=== PATIENT | female | born 1970 | race Caucasian/White ===

== ENCOUNTER 2016-12-01 10:29 | Emergency (ER) | payer MEDICARE ==
[2016-12-01] MEDS ORDERED: BACIGUENT PACKET TP ONE (10:59)
[2016-12-01] MEDS ORDERED: BACIGUENT PACKET ONE (11:01)
--- NOTE | 2016-12-01 11:07 | ERPHSYRPT ---
- History of Present Illness Time Seen by Provider: 12/01/16 11:01 Source: patient Exam Limitations: no limitations Patient Subjective Stated Complaint: pt stub right foot on hosptial bed at home last night, pt has laceration to bottom of 5th toe. no bleeding at present time Triage Nursing Assessment: pt alert and in no distress, pt laceration 1/2 cm in length with no bleeding and no other injury Physician History: This is a 46-year-old white female she arrives with complaint of pain in her right fifth toe with a laceration on the plantar surface of the base of her right fifth toe symptoms since 1:00 last night. Patient states she stubbed her toe on a hospital bed. Patient states she has a laceration which is primarily concerned about she does have some pain in the right fifth toe but this is minimal. Past medical history includes hypercholesterolemia. Asthma, bronchitis, GERD, irritable bowel, depression, borderline personality disorder, manic depression. Past surgical history includes appendectomy, cholecystectomy, hysterectomy. Social history positive for tobacco use Method of Injury: other (stubbed her toe on a hospital bed) Occurred: other (last night at 1:00) Quality: constant Severity of Pain-Max: moderate Severity of Pain-Current: mild Lower Extremities Pain: 5th toe: right Modifying Factors: Improves With: nothing Associated Symptoms: No unable to bear weight, No dizzy, No fainted, No seizure , No snapping sensation, No popping sensation Allergies/Adverse Reactions: miconazole nitrate [From Monistat 3] Allergy (Verified 12/01/16 10:45) Home Medications: Furosemide 20 mg [Lasix 20 mg] 20 mg DAILY 04/29/12 [History] Montelukast Sodium [Singulair] 10 mg HS 04/29/12 [History] Omeprazole 20 mg BID 04/29/12 [History] Potassium Chloride 10 Meq Tab* [Klor Con 10 MEQ] 10 meq DAILY 04/29/12 [ History] Quetiapine Fumarate 100 mg [Seroquel 100 MG] 300 mg HS 04/29/12 [History] Quetiapine Fumarate [Seroquel Xr] 400 mg HS 04/29/12 [History] Simvastatin [Zocor] 20 mg DAILY 04/29/12 [History] Fluoxetine HCl [Prozac] 60 mg DAILY 08/21/14 [History] Methocarbamol [Robaxin-750] 750 mg Q4HPRN PRN 08/21/14 [History] Solifenacin Succinate [Vesicare] 5 mg DAILY 08/21/14 [History] Armodafinil [Nuvigil] 50 mg DAILY 12/01/16 [History] Azithromycin [Zithromax Tri-Jac] 500 mg DAILY 12/01/16 [History] Esomeprazole Magnesium [Nexium] 20 mg DAILY 12/01/16 [History] Hx Tetanus, Diphtheria Vaccination/Date Given: Yes (2013) Hx Influenza Vaccination/Date Given: No Hx Pneumococcal Vaccination/Date Given: No Immunizations Up to Date: Yes - Review of Systems Constitutional: No Fever, No Chills Eyes: No Symptoms Ears, Nose, & Throat: No Symptoms Respiratory: No Cough, No Dyspnea Cardiac: No Chest Pain, No Edema, No Syncope Abdominal/Gastrointestinal: No Abdominal Pain, No Nausea, No Vomiting, No Diarrhea Genitourinary Symptoms: No Dysuria Musculoskeletal: Other (pain right fifth toe) Skin: Other (1.5 cm laceration base of right fifth toe plantar surface) Neurological: No Dizziness, No Focal Weakness, No Sensory Changes Psychological: No Symptoms Endocrine: No Symptoms All Other Systems: Reviewed and Negative - Past Medical History Pertinent Past Medical History: Yes Neurological History: No Pertinent History Cardiac History: Coronary Artery Disease, Other Respiratory History: Bronchitis, Emphysema Endocrine Medical History: No Pertinent History Musculoskeletal History: Osteoarthritis GI Medical History: GERD, Irritable Bowel Psycho-Social History: Depression, Other Female Reproductive Disorders: No Pertinent History Other Medical History: narcolpsy - Past Surgical History Past Surgical History: Yes Neuro Surgical History: No Pertinent History Cardiac: No Pertinent History Respiratory: No Pertinent History Gastrointestinal: Appendectomy, Cholecystectomy Musculoskeletal: No Pertinent History Female Surgical History: Hysterectomy - Social History Smoking Status: Current some day smoker How long have you smoked: 37 Exposure to second hand smoke: Yes Drug Use: none Patient Lives Alone: Yes Significant Family History: no pertinent family hx - Female History Hx Last Menstrual Period: hyster Hx Now: No - Nursing Vital Signs Nursing Vital Signs: Initial Vital Signs Temperature 98.2 F Temperature Source Oral Pulse Rate 70 Respiratory Rate 16 Blood Pressure 117/70 Pain Intensity 0 - Physical Exam General Appearance: mild distress Eyes, Ears, Nose, Throat Exam: moist mucous membranes Neck Exam: non-tender, supple Cardiovascular/Respiratory Exam: chest non-tender, normal breath sounds, regular rate/rhythm, no respiratory distress Gastrointestinal/Abdominal Exam: non-tender, guarding Back Exam: normal inspection, No vertebral tenderness Hips Exam: bilateral: non-tender, normal inspection, normal range of motion, no evidence of injury Legs Exam: bilateral leg: non-tender, normal inspection, normal range of motion , no evidence of injury Knees Exam: bilateral knee: non-tender, normal inspection, normal range of motion, no evidence of injury Ankle Exam: bilateral ankle: non-tender, normal inspection, normal range of motion, no evidence of injury Foot Exam: right foot: other (right fifth toe with mild tenderness full range of motion all toes, 1.5 cm laceration plantar surface base of fifth toe no bleeding), left foot: non-tender, normal inspection, normal range of motion DTR - Lower Extremities Exam: ankle (R): 2+, ankle (L): 2+ Neuro/Tendon Exam: normal sensation, normal motor functions Mental Status Exam: alert, oriented x 3, cooperative Skin Exam: normal color, warm, dry SpO2 Interpretation: normal (96%) SpO2: 96 Oxygen Delivery: Room Air - Course Nursing assessment & vital signs reviewed: Yes Ordered Tests: Active Orders 24 hr Category Date Time Status Splint STAT Care 12/01/16 10:59 Active Wound Care STAT Care 12/01/16 10:59 Active Medication Summary Discontinued Medications Generic Name Dose Route Start Last Admin Trade Name Freq PRN Reason Stop Dose Admin Bacitracin 0.9 gm 12/01/16 10:59 Baciguent Packet TP 12/01/16 11:00 STAT ONE Bacitracin Confirm 12/01/16 11:01 Baciguent Packet Administered 12/01/16 11:02 Dose 1 gm .ROUTE .STK-MED ONE - Progress Progress: improved Progress Note: 12/01/16 11:05 This is a 46-year-old white female she arrives with complaint of stubbing her right great toe on the hospital bed last night approximately 10 hours ago she has a laceration to the plantar surface of the base of the right fifth toe this is not bleeding and this is delayed presentation. Do not feel like sutures would be appropriate for this case. Will have the nurses clean the area will have them apply bacitracin and salina tape the right fifth toe to the fourth toe. Will give patient postop shoe. Patient really states that she is most concerned about a laceration on her toe she has mild pain Will write for some Pompey. Will discharge patient her tetanus is up to date. Patient is to clean area daily and apply bacitracin use salina tape use her postop shoe. Will write for Pompey one orally every 4-6 hours as needed for pain #12 - Departure Time of Disposition: 11:07 Departure Disposition: Home Clinical Impression: delayed presentation Laceration of fifth toe, right Qualifiers: Encounter type: initial encounter Qualified Code(s): S91.114A - Laceration without foreign body of right lesser toe(s) without damage to nail, initial encounter Contusion of fifth toe, right Qualifiers: Encounter type: initial encounter Qualified Code(s): S90.121A - Contusion of right lesser toe(s) without damage to nail, initial encounter Condition: Fair Critical Care Time: No Referrals: KIMBERLY DUKES [Primary Care Provider] - Additional Instructions: Return home. Clean right fifth toe and apply bacitracin daily. Salina tape right fifth toe to right fourth toe. Wear postop shoe for 5 days. Follow-up with your family doctor or return if problems. Return for acute distress or for severe symptoms. Pompey 5/325 #12 one orally every 4-6 hours as needed for pain Prescriptions: Hydrocodone Bit/Acetaminophen [Pompey 5/325Mg] 1 tab PO Q4-6HPRN PRN #12 tablet PRN Reason: Pain
[2016-12-01 11:19] VITALS: BP 115/74; PULSE 74; O2SAT 94
== END 2016-12-01 11:28 ==
LOC: ED 10:29
DX: S91.114A Laceration without foreign body of right lesser toe(s) without damage to nail, initial encounter (principal); S90.121A Contusion of right lesser toe(s) without damage to nail, initial encounter; W22.03XA Walked into furniture, initial encounter
CPT/HCPCS: 99283

== ENCOUNTER 2017-03-12 16:09 | Emergency (ER) | payer MEDICARE ==
[2017-03-12 16:34] VITALS: O2SAT 94
[2017-03-12 17:29] VITALS: BP 116/73; PULSE 60
--- NOTE | 2017-03-12 17:41 | ERPHSYRPT ---
- History of Present Illness Time Seen by Provider: 03/12/17 16:29 Source: patient Patient Subjective Stated Complaint: LT FOOT PAIN Triage Nursing Assessment: DORSAL LT FOOT PAIN FOR 4 DAYS. SLIGHT DORSAL REDNESS AND SLIGHT SWELLING TO DORSAL LT FOOT. DENIES INJURY. REDNESS NOTED TO BASE OF 3-5 TOES ON LT FOOT. Physician History: CC: left foot pain Hx: 46 y/o patient of Dr Zhang. She has pain in left foot for 4 days. Might have twisted on a hump on her floor. Mild redness. No fever or chills. No FB. Tetanus up to date. Pain moderate. She used aleve. Severity of Pain-Max: mild Severity of Pain-Current: mild Lower Extremities Pain: foot: left Allergies/Adverse Reactions: miconazole nitrate [From Monistat 3] Allergy (Verified 12/01/16 10:45) Home Medications: Furosemide 20 mg [Lasix 20 mg] 20 mg DAILY 04/29/12 [History] Montelukast Sodium [Singulair] 10 mg HS 04/29/12 [History] Omeprazole 20 mg BID 04/29/12 [History] Potassium Chloride 10 Meq Tab* [Klor Con 10 MEQ] 10 meq DAILY 04/29/12 [ History] Quetiapine Fumarate 100 mg [Seroquel 100 MG] 300 mg HS 04/29/12 [History] Quetiapine Fumarate [Seroquel Xr] 400 mg HS 04/29/12 [History] Simvastatin [Zocor] 20 mg DAILY 04/29/12 [History] Fluoxetine HCl [Prozac] 60 mg DAILY 08/21/14 [History] Methocarbamol [Robaxin-750] 750 mg Q4HPRN PRN 08/21/14 [History] Solifenacin Succinate [Vesicare] 5 mg DAILY 08/21/14 [History] Armodafinil [Nuvigil] 50 mg DAILY 12/01/16 [History] Azithromycin [Zithromax Tri-Jac] 500 mg DAILY 12/01/16 [History] Esomeprazole Magnesium [Nexium] 20 mg DAILY 12/01/16 [History] Hx Tetanus, Diphtheria Vaccination/Date Given: Yes Hx Influenza Vaccination/Date Given: No Hx Pneumococcal Vaccination/Date Given: No Immunizations Up to Date: Yes - Review of Systems Constitutional: No Fever, No Chills Abdominal/Gastrointestinal: No Nausea, No Vomiting Skin: No Rash - Past Medical History Pertinent Past Medical History: Yes Neurological History: No Pertinent History Cardiac History: Coronary Artery Disease, Other Respiratory History: Bronchitis, Emphysema Endocrine Medical History: No Pertinent History Musculoskeletal History: Osteoarthritis GI Medical History: GERD, Irritable Bowel Psycho-Social History: Depression, Other Female Reproductive Disorders: No Pertinent History Other Medical History: Narcolepsy - Past Surgical History Past Surgical History: Yes Neuro Surgical History: No Pertinent History Cardiac: No Pertinent History Respiratory: No Pertinent History Gastrointestinal: Appendectomy, Cholecystectomy Musculoskeletal: No Pertinent History Female Surgical History: Hysterectomy - Social History Smoking Status: Current every day smoker How long have you smoked: 37 Exposure to second hand smoke: No Drug Use: none Patient Lives Alone: Yes Significant Family History: no pertinent family hx - Female History Hx Now: No - Nursing Vital Signs Nursing Vital Signs: Initial Vital Signs Temperature 97.3 F Temperature Source Oral Pulse Rate 60 Respiratory Rate 18 Blood Pressure [Right Arm] 116/73 Pain Intensity 6 - Physical Exam General Appearance: alert Eyes, Ears, Nose, Throat Exam: moist mucous membranes Neck Exam: normal inspection, non-tender, supple Cardiovascular/Respiratory Exam: chest non-tender, normal breath sounds, regular rate/rhythm Gastrointestinal/Abdominal Exam: non-tender, soft Neuro/Tendon Exam: normal sensation, normal motor functions Mental Status Exam: alert, oriented x 3, cooperative Skin Exam: warm, dry SpO2 Interpretation: normal SpO2: 94 Oxygen Delivery: Room Air Comments: mild dorsal erythema, intact pulses, no sores, skin tenderness to foot. No ankle or leg tenderness. - Course Nursing assessment & vital signs reviewed: Yes - Radiology Exams left foot X-ray Interpretation: No Fracture Ordered Tests: Active Orders 24 hr Category Date Time Status Splint STAT Care 03/12/17 17:35 Active FOOT (MINIMUM 3 VIEWS) Stat Exams 03/12/17 16:34 Taken - Progress Progress Note: 03/12/17 17:39 Likely mild cellulitis. Can not rule out early charcot. Advised close follow up with Dr Zhang. Rx keflex and darco shoe. Counseled pt/family regarding: diagnosis, need for follow-up, rad results - Departure Time of Disposition: 17:39 Departure Disposition: Home Clinical Impression: Left foot pain, Cellulitis of left foot Condition: Stable Critical Care Time: No Referrals: ELISSA AGRAWAL [Primary Care Provider] - Instructions: Cellulitis -- Adult, Foot Pain Additional Instructions: Elevate foot. Darco shoe. Rx keflex. Aleve as already directed. Follow up with Dr Vicente raines. Prescriptions: Cephalexin Mh 500 mg [Keflex 500 mg] 1 cap PO QID #40 capsule
--- NOTE | 2017-03-13 08:51 | XRAY ---
Indication: Pain and redness for 4 days. No known injury. Comparison: July 03, 2016. 3 nonweightbearing views of the left foot again demonstrates talonavicular accessory ossicle. No new/acute bony, articular, or soft tissue abnormalities.
== END 2017-03-12 17:51 | disposition home or self-care (01) ==
LOC: ED 16:09
DX: M79.672 Pain in left foot (principal); L03.116 Cellulitis of left lower limb; J44.9 Chronic obstructive pulmonary disease, unspecified
CPT/HCPCS: 73630; 99283

== ENCOUNTER 2017-06-20 07:29 | Emergency (ER) | payer MEDICARE ==
[2017-06-20] MEDS ORDERED: MOTRIN 600 MG PO ONE (07:43)
[2017-06-20] MEDS ORDERED: MOTRIN 600 MG ONE (07:47)
--- NOTE | 2017-06-20 07:52 | ERPHSYRPT ---
- History of Present Illness Time Seen by Provider: 06/20/17 07:33 Source: patient Patient Subjective Stated Complaint: PT REPORTS TRIPPING ET FALLING LAST NIGHT- REPORTS PAIN TO RIGHT SHOULDER-STATES PAIN INCREASES WITH MOVEMENT-DENIES NUMBNESS OR TINLGING Triage Nursing Assessment: PT PINK WARM ET [id number] UNABLE TO MOVE EXTREMITY -GRIMACING ET MOANING-RADIAL PULSE REGULAR-CAP REFILL 3 SECONDS-PT REPORTS FULL SENSATION TO HAND Physician History: CC: right arm injury Hx: 46 y/o patient of JACY Fine. She fell around 11PM last night at her brother' s walking on a dark walk. She has injury to the right arm. Pain is moderately severe and worse with movement. No N/T/W. No head or neck injury. No other injury. She drove herself here and prefers no shots. Allergies/Adverse Reactions: miconazole nitrate [From Monistat 3] Allergy (Verified 06/20/17 07:42) Home Medications: Furosemide 20 mg [Lasix 20 mg] 20 mg DAILY 04/29/12 [History] Montelukast Sodium [Singulair] 10 mg HS 04/29/12 [History] Omeprazole 20 mg BID 04/29/12 [History] Potassium Chloride 10 Meq Tab* [Klor Con 10 MEQ] 10 meq DAILY 04/29/12 [ History] Quetiapine Fumarate [Seroquel Xr] 400 mg HS 04/29/12 [History] Simvastatin [Zocor] 20 mg DAILY 04/29/12 [History] Fluoxetine HCl [Prozac] 60 mg DAILY 08/21/14 [History] Methocarbamol [Robaxin-750] 750 mg Q4HPRN PRN 08/21/14 [History] Solifenacin Succinate [Vesicare] 5 mg DAILY 08/21/14 [History] Esomeprazole Magnesium [Nexium] 20 mg DAILY 12/01/16 [History] Hx Tetanus, Diphtheria Vaccination/Date Given: Yes Hx Influenza Vaccination/Date Given: No Hx Pneumococcal Vaccination/Date Given: No Immunizations Up to Date: Yes - Review of Systems Constitutional: No Symptoms Eyes: No Vision Changes, No Double Vision Respiratory: No Dyspnea Cardiac: No Chest Pain Abdominal/Gastrointestinal: No Abdominal Pain Musculoskeletal: Fall, Injury (right arm), No Back Pain, No Neck Pain Skin: No Rash Neurological: No Focal Weakness, No Headache, No Parasthesia All Other Systems: Reviewed and Negative - Past Medical History Pertinent Past Medical History: Yes Neurological History: No Pertinent History Cardiac History: Coronary Artery Disease, Other Respiratory History: Bronchitis, Emphysema Endocrine Medical History: No Pertinent History Musculoskeletal History: Fibromyalgia, Osteoarthritis GI Medical History: GERD, Irritable Bowel Psycho-Social History: Depression, Other Female Reproductive Disorders: No Pertinent History Other Medical History: Narcolepsy - Past Surgical History Past Surgical History: Yes Neuro Surgical History: No Pertinent History Cardiac: No Pertinent History Respiratory: No Pertinent History Gastrointestinal: Appendectomy, Cholecystectomy Musculoskeletal: No Pertinent History Female Surgical History: Hysterectomy - Social History Smoking Status: Current every day smoker How long have you smoked: YRS Exposure to second hand smoke: No Drug Use: none Patient Lives Alone: Yes Significant Family History: no pertinent family hx - Female History Hx Last Menstrual Period: HYSTERECTOMY Hx Now: No - Nursing Vital Signs Nursing Vital Signs: Initial Vital Signs Temperature 98.2 F 06/20/17 07:39 Pulse Rate 81 06/20/17 07:39 Respiratory Rate 20 06/20/17 07:39 Blood Pressure 130/80 06/20/17 07:39 O2 Sat by Pulse Oximetry 95 06/20/17 07:39 Pain Scale Pain Intensity 7 - Physical Exam General Appearance: alert Eyes, Ears, Nose, Throat Exam: moist mucous membranes Neck Exam: normal inspection, non-tender, supple Cardiovascular/Respiratory Exam: normal breath sounds, regular rate/rhythm Abdominal Exam: non-tender, soft Back Exam: normal inspection, No vertebral tenderness Shoulder Exam: normal inspection, bone tenderness, limited ROM Elbow/Forearm Exam: normal inspection, bone tenderness, limited ROM Wrist Exam: normal inspection, normal ROM, bone tenderness Hand Exam: normal inspection, non-tender, no evidence of injury Neuro/Tendon Exam: normal sensation, normal motor functions Mental Status Exam: alert, oriented x 3, cooperative Skin Exam: warm, dry SpO2 Interpretation: normal SpO2: 95 Oxygen Delivery: Room Air Comments: Diffuse tenderness in arm. No laceration. No bruising. Pulse intact. No swelling. - Course Nursing assessment & vital signs reviewed: Yes - Radiology Exams right wrist, elbow, shoulder X-ray Interpretation: Reviewed by me, No Fracture Ordered Tests: Active Orders 24 hr Category Date Time Status Cold Application STAT Care 06/20/17 07:43 Active NPO (ED) STAT Care 06/20/17 07:43 Active Sling Application STAT Care 06/20/17 07:43 Active ELBOW (MINIMUM 3 VIEWS) Stat Exams 06/20/17 07:44 Taken SHOULDER Stat Exams 06/20/17 07:43 Taken WRIST (MIN 3 VIEWS) Stat Exams 06/20/17 07:44 Taken Medication Summary Discontinued Medications Generic Name Dose Route Start Last Admin Trade Name Nelson PRN Reason Stop Dose Admin Ibuprofen 600 mg 06/20/17 07:43 06/20/17 07:48 Motrin 600 Mg PO 06/20/17 07:44 600 mg STAT ONE Administration Ibuprofen Confirm 06/20/17 07:47 Motrin 600 Mg Administered 06/20/17 07:48 Dose 600 mg .ROUTE .STK-MED ONE - Progress Progress Note: 06/20/17 08:24 Good ROM at elbow and wrist. More sore at the shoulder. Likely shoulder strain or rotator cuff injury. Instr given. Counseled pt/family regarding: diagnosis, need for follow-up, rad results, smoking cessation - Departure Time of Disposition: 08:25 Departure Disposition: Home Clinical Impression: Right shoulder strain Qualifiers: Encounter type: initial encounter Qualified Code(s): S46.911A - Strain of unspecified muscle, fascia and tendon at shoulder and upper arm level, right arm , initial encounter Condition: Stable Critical Care Time: No Referrals: ELISSA FINE [Primary Care Provider] - Instructions: Quit Smoking, Shoulder Sprain, Use a Sling Additional Instructions: SPRAINS/STRAINS/CONTUSIONS 1. Rest the affected area as much as possible for the next few days. 2. Apply ice to the affected area for 20-30 minutes at a time, several times a day. 3. If you receive an elastic wrap, wear it only while awake for comfort and support. Re-wrap the elastic wrap if it feels too tight or too loose. 4. If swelling is present, elevate the affected part above the level of the heart for at least 2 to 3 days. 5. Use splints, slings, or crutches as instructed. 6. Watch for severe swelling, coldness, numbness, and discoloration of the fingers and toes. See your family physician or return to the emergency department if any of these are noted. Rx ibuprofen. Have someone drive you. Follow up with JACY Fine Thursday or Thursday. Prescriptions: Ibuprofen 600 mg PO Q6H PRN PRN #20 tablet PRN Reason: Pain
--- NOTE | 2017-06-20 08:26 | XRAY ---
Indication: Pain following fall. Comparison: None 3 views of the right wrist obtained. No bony, articular, or soft tissue abnormalities.
--- NOTE | 2017-06-20 08:26 | XRAY ---
Indication: Pain following fall. Comparison: None 3 views of the right elbow obtained. No bony, articular, or soft tissue abnormalities.
--- NOTE | 2017-06-20 08:27 | XRAY ---
Indication: Pain following fall. Comparison: None 3 views of the right shoulder obtained. No bony, articular, or soft tissue abnormalities.
[2017-06-20 08:31] VITALS: BP 134/88; PULSE 78; O2SAT 96
== END 2017-06-20 08:30 | disposition home or self-care (01) ==
LOC: ED 07:29
DX: S46.911A Strain of unspecified muscle, fascia and tendon at shoulder and upper arm level, right arm, initial encounter (principal); W18.39XA Other fall on same level, initial encounter
CPT/HCPCS: 73030; 73080; 73110; 99283; A9270-GY

== ENCOUNTER 2018-01-26 16:19 | Emergency (ER) | payer MEDICARE ==
--- NOTE | 2018-01-26 16:46 | ERPHSYRPT ---
- History of Present Illness Time Seen by Provider: 01/26/18 16:39 Source: patient Exam Limitations: no limitations Patient Subjective Stated Complaint: left arm pain from elbow down Triage Nursing Assessment: pt to er c/o left arm pain from elbow down, been ongoing for past 2 months ago, feels she may have strained the arm moving her self and has progressively gotten worse, Pulses (+), full ROM noted when patient removed clothing Physician History: The patient is a 47-year-old right-handed female who complains of left elbow pain for the past 2 months. She thinks she may have strained her arm by moving herself around. She's not able to use her right arm as much as she used to because she's having shoulder surgery soon. Her left elbow especially is painful when she lifts something. She denies any specific injury to it. She denies numbness or tingling. Occurred: other (2 months) Method of Injury: unknown Quality: aching Severity of Pain-Max: moderate Severity of Pain-Current: moderate Extremities Pain Location: elbow: left Modifying Factors: Improves With: nothing Associated Symptoms: none Allergies/Adverse Reactions: miconazole nitrate [From Monistat 3] Allergy (Verified 01/26/18 16:34) Hives Home Medications: Furosemide 20 mg [Lasix 20 mg] 20 mg DAILY 04/29/12 [History] Montelukast Sodium [Singulair] 10 mg HS 04/29/12 [History] Omeprazole 20 mg BID 04/29/12 [History] Potassium Chloride 10 Meq Tab* [Klor Con 10 MEQ] 10 meq DAILY 04/29/12 [ History] Quetiapine Fumarate [Seroquel Xr] 400 mg HS 04/29/12 [History] Simvastatin [Zocor] 20 mg DAILY 04/29/12 [History] Fluoxetine HCl [Prozac] 60 mg DAILY 08/21/14 [History] Methocarbamol [Robaxin-750] 750 mg Q4HPRN PRN 08/21/14 [History] Solifenacin Succinate [Vesicare] 5 mg DAILY 08/21/14 [History] Esomeprazole Magnesium [Nexium] 20 mg DAILY 12/01/16 [History] Hx Tetanus, Diphtheria Vaccination/Date Given: No Hx Influenza Vaccination/Date Given: Yes Hx Pneumococcal Vaccination/Date Given: Yes Immunizations Up to Date: No - Review of Systems Constitutional: No Fever, No Chills Eyes: No Symptoms Ears, Nose, & Throat: No Symptoms Respiratory: No Cough, No Dyspnea Cardiac: No Chest Pain, No Edema, No Syncope Abdominal/Gastrointestinal: No Abdominal Pain, No Nausea, No Vomiting, No Diarrhea Genitourinary Symptoms: No Dysuria Musculoskeletal: Joint Pain Skin: No Rash Neurological: No Dizziness, No Focal Weakness, No Sensory Changes Psychological: No Symptoms Endocrine: No Symptoms Hematologic/Lymphatic: No Symptoms Immunological/Allergic: No Symptoms All Other Systems: Reviewed and Negative - Past Medical History Pertinent Past Medical History: Yes Neurological History: No Pertinent History Cardiac History: No Pertinent History Respiratory History: Asthma, Bronchitis, COPD, Emphysema Endocrine Medical History: Diabetes Type II Musculoskeletal History: No Pertinent History GI Medical History: Other History: No Pertinent History Psycho-Social History: Anxiety, Depression Female Reproductive Disorders: No Pertinent History Other Medical History: Narcolepsy - Past Surgical History Past Surgical History: Yes Neuro Surgical History: No Pertinent History Cardiac: No Pertinent History Respiratory: No Pertinent History Gastrointestinal: Appendectomy, Cholecystectomy Genitourinary: Other Musculoskeletal: No Pertinent History Female Surgical History: Hysterectomy Other Surgical History: bladder, lift, left knee, cyst right ovary - Social History Smoking Status: Current every day smoker How long have you smoked: YRS Exposure to second hand smoke: Yes Drug Use: none Patient Lives Alone: No Significant Family History: no pertinent family hx - Female History Hx Now: No - Nursing Vital Signs Nursing Vital Signs: Initial Vital Signs Temperature 97.9 F 01/26/18 16:25 Pulse Rate 73 01/26/18 16:25 Respiratory Rate 20 01/26/18 16:25 Blood Pressure 125/69 01/26/18 16:25 O2 Sat by Pulse Oximetry 97 01/26/18 16:25 Pain Scale Pain Intensity 0 - Physical Exam General Appearance: alert Eyes, Ears, Nose, Throat Exam: moist mucous membranes Neck Exam: non-tender, supple Cardiovascular/Respiratory Exam: chest non-tender, regular rate/rhythm, no respiratory distress, wheezing Abdominal Exam: non-tender, No guarding Back Exam: normal inspection, No vertebral tenderness Shoulder Exam: normal inspection Elbow/Forearm Exam: normal ROM, soft tissue tenderness (left epicondyle) Wrist Exam: normal inspection Hand Exam: normal inspection Neuro/Tendon Exam: normal sensation, normal motor functions Mental Status Exam: alert, oriented x 3, cooperative Skin Exam: normal color, warm, dry SpO2 Interpretation: normal SpO2: 97 Oxygen Delivery: Room Air - Progress Progress: unchanged Counseled pt/family regarding: diagnosis - Departure Time of Disposition: 16:49 Departure Disposition: Home Clinical Impression: Lateral epicondylitis of left elbow Condition: Stable Critical Care Time: No Referrals: ELISSA AGARWAL [Primary Care Provider] - Additional Instructions: You have lateral epicondylitis of the left elbow, commonly referred to as tennis elbow. This is a strain of the tendon in your elbow. Take naproxen 500 mg 2 times a day for 2 weeks. Apply ice to the area 3 times a day. Purchase an [id number] forearm strap and apply it over the area that is hurting. Follow-up in one week with your primary medical doctor. Prescriptions: Naproxen 500 mg PO BID #30 tablet.
[2018-01-26 16:57] VITALS: BP 122/70; PULSE 76; O2SAT 99
== END 2018-01-26 16:50 | disposition home or self-care (01) ==
LOC: ED 16:19
DX: M77.12 Lateral epicondylitis, left elbow (principal)
CPT/HCPCS: 99281

== ENCOUNTER 2018-04-06 06:02 | Day surgery (SDC) | payer MEDICARE ==
[~2018-04-06 06:02] MED LIST: Lactated Ringers 1,000 ML IV SCH
[2018-04-06] MEDS ORDERED: DIPRIVAN 200 MG/20 ML IV ONE (06:03)
[2018-04-06] MEDS ORDERED: Ketamine HCl 50 MG/ML IV ONE (06:03)
[2018-04-06 06:43] VITALS: PULSE 83; O2SAT 93
[2018-04-06 09:26] VITALS: BP 137/89
--- NOTE | 2018-04-06 11:47 | OP ---
SURGERY DATE/TIME: 04/06/2018812 PREOPERATIVE DIAGNOSIS: Gastroesophageal reflux. POSTOPERATIVE DIAGNOSIS: Mild gastritis. PROCEDURE: Esophagogastroduodenoscopy with cold biopsy forceps. SURGEON: Dr. Zhang. ANESTHESIA: Medications were given by the anesthesia department. BRIEF HISTORY: The patient is a 47 year-old white female presenting now for endoscopic evaluation. She reports she has been having problems with reflux waking her up in the middle of the night with food in the back of the throat. The patient has also been having some problems with epigastric pain. She was felt the need to have endoscopic evaluation. She was appraised of the risks of the procedure including the risk of perforation, phlebitis, untoward reaction to medication, bleeding and missed lesions. The patient verbalized her understanding and desired to have the procedure performed. DESCRIPTION OF PROCEDURE: The patient was given the medications by the anesthesia department. She had continuous pulse oximetry, ECG monitoring, intermittent blood pressure monitoring and tidal CO2 monitoring during the examination. She was placed in the left lateral decubitus position. A bite block was placed and the flexible Olympus gastroscope was used to intubate the oropharynx. A view of the larynx was obtained and this was normal. The scope was easily introduced in the esophagus which appeared to be normal throughout its length. The stomach was entered where normal gastric rugal folds were seen. There was noted to be fat droplets and bowel refluxing in the stomach. The gastric oliveira was suctioned dry and the stomach was re-insufflated. The gastric rugal folds distended nicely with insufflation of air. The scope was passed along the greater curvature of the stomach to the antrum. The pylorus was encountered and intubated. The duodenum inspected and found to be normal. The scope is withdrawn towards the stomach. Again, a retroflex view was obtained of the lesser curvature, fundus and cardia regions of the stomach and these appeared to be normal. The scope was then redirected towards the gastric antrum and cold biopsy technique was used to biopsy the lower part of the gastric antrum to rule out the presence of Helicobacter pylori-type organisms. The scope was then removed from the patient who tolerated the procedure well and was sent back to outpatient recovery in good condition.
== END 2018-04-06 09:32 | disposition home or self-care (01) ==
LOC: SDC 06:02
PROVIDERS: ATTEND Family Medicine
DX: K29.70 Gastritis, unspecified, without bleeding (principal); R07.9 Chest pain, unspecified; E10.9 Type 1 diabetes mellitus without complications
CPT/HCPCS: 88305; J2704

== ENCOUNTER 2018-08-30 19:07 | Emergency (ER) | payer MEDICARE ==
--- NOTE | 2018-08-30 19:44 | ERPHSYRPT ---
- History of Present Illness Time Seen by Provider: 08/30/18 19:39 Source: patient Exam Limitations: no limitations Patient Subjective Stated Complaint: swelling and pain in her legs Triage Nursing Assessment: pt alert and oriented x3, able to abulate by self, gait is steady, skin warm dry and tinact, nelly has pitting edema of right lower leg, red and hot to touch. nelly states it is very painful. pedal pulsespresent , no decrease in sensation. Physician History: The patient is a 48-year-old female who complains of worsening right lower leg redness, swelling, and pain for 5 days. 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 The patient denies fever or chills. She denies having any trauma to the skin. She denies shortness of breath. Her past medical history is significant for diabetes type 2, high cholesterol, and asthma. Method of Injury: unknown Occurred: days ago (5) Quality: aching Severity of Pain-Max: moderate Severity of Pain-Current: moderate Lower Extremities Pain: leg: right Modifying Factors: Improves With: nothing Associated Symptoms: none Allergies/Adverse Reactions: miconazole nitrate [From Monistat 3] Allergy (Severe, Verified 04/06/18 06:46) Hives Home Medications: Albuterol Sulfate [Ventolin Hfa] 18 gm IH HS 04/01/18 [History] Cyclobenzaprine HCl 10 mg [Cyclobenzaprine 10 MG] 20 mg PO HS 04/01/18 [ History] Dicyclomine HCl 20 mg [Bentyl 20 mg] 20 mg PO BID 04/01/18 [History] Esomeprazole Magnesium 20 mg PO DAILY 04/01/18 [History] Estradiol [Estrace] 0.5 mg PO DAILY 04/01/18 [History] Fenofibrate Nanocrystallized [Fenofibrate] 145 mg PO DAILY 04/01/18 [History] Fluoxetine HCl 20 mg [Prozac 20 MG] 40 mg PO DAILY 04/01/18 [History] Furosemide 20 mg PO DAILY 04/01/18 [History] Gabapentin 300 mg PO HS 04/01/18 [History] Metformin HCl 500 mg [Glucophage 500 MG] 500 mg PO DAILY 04/01/18 [History ] Montelukast Sodium [Singulair] 10 mg PO HS 04/01/18 [History] Quetiapine Fumarate [Seroquel Xr] 400 mg PO HS 04/01/18 [History] Sennosides/Docusate Sodium [Dok Plus Tablet] 500 each PO BID 04/01/18 [History] Potassium Chloride 8 meq PO 08/30/18 [History] Simvastatin 1 tab PO DAILY 08/30/18 [History] Hx Tetanus, Diphtheria Vaccination/Date Given: Yes Hx Influenza Vaccination/Date Given: No Hx Pneumococcal Vaccination/Date Given: Yes Immunizations Up to Date: Yes - Review of Systems Constitutional: No Fever, No Chills Eyes: No Symptoms Ears, Nose, & Throat: No Symptoms Respiratory: No Cough, No Dyspnea Cardiac: Edema (right leg), No Chest Pain, No Syncope Abdominal/Gastrointestinal: No Abdominal Pain, No Nausea, No Vomiting, No Diarrhea Genitourinary Symptoms: No Dysuria Musculoskeletal: No Back Pain, No Neck Pain Skin: Cellulitis (right leg), No Rash Neurological: No Dizziness, No Focal Weakness, No Sensory Changes Psychological: No Symptoms Endocrine: No Symptoms Hematologic/Lymphatic: No Symptoms Immunological/Allergic: No Symptoms All Other Systems: Reviewed and Negative - Past Medical History Pertinent Past Medical History: Yes Neurological History: No Pertinent History ENT History: No Pertinent History Cardiac History: No Pertinent History, Other Respiratory History: Asthma, COPD, Emphysema Endocrine Medical History: Diabetes Type II Musculoskeletal History: No Pertinent History GI Medical History: Other History: No Pertinent History Psycho-Social History: Anxiety, Depression Female Reproductive Disorders: No Pertinent History Other Medical History: smoker - Past Surgical History Past Surgical History: Yes Neuro Surgical History: No Pertinent History Cardiac: No Pertinent History Respiratory: No Pertinent History Gastrointestinal: Appendectomy, Cholecystectomy Genitourinary: Other Musculoskeletal: No Pertinent History Female Surgical History: Hysterectomy Other Surgical History: bladder, lift, left knee, cyst right ovary - Social History Smoking Status: Current every day smoker How long have you smoked: YRS Exposure to second hand smoke: Yes Drug Use: none Patient Lives Alone: No Significant Family History: no pertinent family hx - Female History Hx Now: No - Nursing Vital Signs Nursing Vital Signs: Initial Vital Signs Temperature 97.8 F 08/30/18 19:07 Pulse Rate 89 08/30/18 19:07 Respiratory Rate 20 08/30/18 19:07 Blood Pressure 98/82 08/30/18 19:07 O2 Sat by Pulse Oximetry 97 08/30/18 19:07 Pain Scale Pain Intensity 6 - Physical Exam General Appearance: alert Eyes, Ears, Nose, Throat Exam: moist mucous membranes Neck Exam: non-tender, supple Cardiovascular/Respiratory Exam: chest non-tender, normal breath sounds, regular rate/rhythm, no respiratory distress Gastrointestinal/Abdominal Exam: non-tender, guarding Back Exam: normal inspection, No vertebral tenderness Hips Exam: bilateral: normal inspection Legs Exam: right leg: pain, soft tissue tenderness, swelling, other (swelling, erythema, warmth, tenderness to lower right leg) Knees Exam: bilateral knee: normal inspection Ankle Exam: bilateral ankle: normal inspection Foot Exam: bilateral foot: normal inspection Neuro/Tendon Exam: normal sensation, normal motor functions Mental Status Exam: alert, oriented x 3, cooperative Skin Exam: warm, rash (right lower leg) SpO2 Interpretation: normal SpO2: 97 Oxygen Delivery: Room Air Ordered Tests: Active Orders 24 hr Category Date Time Status BLOOD CULTURE Stat Lab 08/30/18 20:00 Received BMP Stat Lab 08/30/18 19:50 Completed CBC W DIFF Stat Lab 08/30/18 19:50 Completed Lactic Acid Stat Lab 08/30/18 19:50 Completed Lab/Rad Data: Laboratory Result Diagrams 08/30/18 19:50 08/30/18 19:50 Laboratory Results 08/30/18 08/30/18 08/30/18 Range/Units 19:50 19:50 19:50 WBC 8.3 (4.0-10.5) K/mm3 RBC 4.48 (4.1-5.4) M/mm3 Hgb 13.1 (12.0-16.0) gm/dl Hct 40.9 (35-47) % MCV 91.3 (78-100) fl MCH 29.2 (26-32) pg MCHC 32.0 (32-36) g/dl RDW 14.3 H (11.5-14.0) % Plt Count 289 (150-450) K/mm3 MPV 9.4 (6-9.5) fl Gran % 57.8 (36.0-66.0) % Eos # (Auto) 0.36 (0-0.5) Absolute Lymphs (auto) 2.52 (1.0-4.6) Absolute Monos (auto) 0.57 (0.0-1.3) Lymphocytes % 30.5 (24.0-44.0) % Monocytes % 6.9 (0.0-12.0) % Eosinophils % 4.4 (0.00-5.0) % Basophils % 0.4 (0.0-0.4) % Absolute Granulocytes 4.77 (1.4-6.9) Basophils # 0.03 (0-0.4) Sodium 141 (137-145) mmol/L Potassium 3.5 (3.5-5.1) mmol/L Chloride 108 H (98-107) mmol/L Carbon Dioxide 25 (22-30) mmol/L Anion Gap 11.2 (5-15) MEQ/L BUN 11 (7-17) mg/dL Creatinine 0.59 (0.52-1.04) mg/dL Estimated GFR > 60.0 ML/MIN Glucose 132 H (74-106) mg/dL Lactic Acid 1.2 (0.4-2.0) Calcium 9.4 (8.4-10.2) mg/dL - Progress Progress: unchanged Counseled pt/family regarding: lab results, diagnosis, need for follow-up - Departure Time of Disposition: 20:42 Departure Disposition: Home Clinical Impression: Cellulitis of right leg Condition: Stable Critical Care Time: No Referrals: KIMBERLY ZHANG [Primary Care Provider] - Additional Instructions: You have cellulitis of your lower right leg. You were given Rocephin 1 g and toradol 60 mg by IM in the ER. Continue with Augmentin 875 to times a day for 10 days. Follow-up in one to [address] Zhang for reevaluation. Prescriptions: Amoxicillin/Potassium Clav [Augmentin 875-125 Tablet] 875 mg PO BID #20 tablet
[2018-08-30 20:06] LABS: BASOPHIL % 0.4 % (0.0-0.4); Basophil (Absolute #) 0.03 (0-0.4); Eosinophil % 4.4 % (0.00-5.0); Eosinophil (Absolute #) 0.36 (0-0.5); Granulocyte Absolute (ANC) 4.77 (1.4-6.9); Granulocytes % 57.8 % (36.0-66.0); Hematocrit 40.9 % (35-47); Hemoglobin 13.1 gm/dl (12.0-16.0); Lymphocyte (Absolute #) 2.52 (1.0-4.6); Lymphocytes % 30.5 % (24.0-44.0); Mean Cell Volume 91.3 fl (78-100); Mean Corpuscular Hemoglobin 29.2 pg (26-32); Mean Platelet Volume 9.4 fl (6-9.5); Monocyte (Absolute #) 0.57 (0.0-1.3); Monocytes % 6.9 % (0.0-12.0); Platelet Count 289 K/mm3 (150-450); Red Blood Count 4.48 M/mm3 (4.1-5.4); Red Cell Distribution Width 14.3 % (11.5-14.0); White Blood Count 8.3 K/mm3 (4.0-10.5)
[2018-08-30 20:20] LABS: ANION GAP 11.2 MEQ/L (5-15); BLOOD UREA NITROGEN 11 mg/dL (7-17); CHLORIDE 108 mmol/L (98-107); Calcium 9.4 mg/dL (8.4-10.2); Carbon Dioxide 25 mmol/L (22-30); Creatinine 1 0.59 mg/dL (0.52-1.04); Glucose 132 mg/dL (74-106); Potassium 3.5 mmol/L (3.5-5.1); SODIUM 141 mmol/L (137-145)
[2018-08-30] MEDS ORDERED: Rocephin 1000 MG INJ IM ONE (20:42)
[2018-08-30] MEDS ORDERED: Rocephin 1000 MG INJ ONE (20:44)
[2018-08-30] MEDS ORDERED: XYLOCAINE 1% HCL 20 ML MDV ONE (20:44)
[2018-08-30] MEDS ORDERED: TORAdol 30 mg Injection IM ONE (20:46)
[2018-08-30 20:47] VITALS: O2SAT 97
[2018-08-30] MEDS ORDERED: TORAdol 30 mg Injection ONE (20:49)
[2018-08-30 21:02] VITALS: BP 124/70; PULSE 82
== END 2018-08-30 21:00 | disposition home or self-care (01) ==
LOC: ED 19:07
DX: L03.115 Cellulitis of right lower limb (principal); Z79.899 Other long term (current) drug therapy
CPT/HCPCS: 36415; 80048; 83605; 85025; 87040; 96372; 99284; J0696; J1885

== ENCOUNTER 2019-03-28 13:25 | Emergency (ER) | payer MEDICARE | END 2019-03-28 14:07 | disposition left against medical advice (07) | LOC: ED 13:25 | DX: K13.79 Other lesions of oral mucosa (principal) | CPT/HCPCS: 99281 ==

== ENCOUNTER 2020-01-17 14:55 | Emergency (ER) | payer MEDICARE ==
[2020-01-17 15:11] VITALS: PULSE 88
--- NOTE | 2020-01-17 15:21 | ERPHSYRPT ---
- History of Present Illness Time Seen by Provider: 01/17/20 14:57 Source: patient Exam Limitations: no limitations Patient Subjective Stated Complaint: Left lower leg pain/swelling Triage Nursing Assessment: Patient ambulated back to ED and transferred self to bed. Patient A+O X3. Patient't skin pink, warm and dry. Patient complains of left lower/upper leg dull burning/aching pain 4/10. Patient's left leg slightly swollen. Pulses present. Patient had recent rotator cuff surgery on 12/29/19. Physician History: Patient is here with left leg swelling and pain. Patient states that she had rotator cuff surgery on her right arm. This was performed on 12/29/2019. Since that time she has been less mobile. She woke up this morning with left leg pain and swelling. She is most concerned about a blood clot in her left lower leg today. She has no chest pain, shortness of breath, signs or symptoms of a pulmonary embolism. She has no chest pain. Location: left leg Quality: sharp, swelling Radiation: none Severity: moderate Duration: this AM Timing: gradual Modifying factors/associated signs and symptoms: none tried Allergies/Adverse Reactions: miconazole nitrate [From Monistat 3] Allergy (Severe, Verified 01/17/20 14:59) Hives Home Medications: Albuterol Sulfate [Ventolin Hfa] 18 gm IH HS 04/01/18 [History] Cyclobenzaprine HCl 10 mg [Cyclobenzaprine 10 MG] 20 mg PO HS 04/01/18 [ History] Dicyclomine HCl 20 mg [Bentyl 20 mg] 20 mg PO BID 04/01/18 [History] Esomeprazole Magnesium 20 mg PO DAILY 04/01/18 [History] Fenofibrate Nanocrystallized [Fenofibrate] 145 mg PO DAILY 04/01/18 [History] Furosemide 20 mg PO DAILY 04/01/18 [History] Gabapentin 300 mg PO HS 04/01/18 [History] Metformin HCl 500 mg [Glucophage 500 MG] 500 mg PO DAILY 04/01/18 [History ] Montelukast Sodium [Singulair] 10 mg PO HS 04/01/18 [History] Sennosides/Docusate Sodium [Dok Plus Tablet] 500 each PO BID 04/01/18 [History] Potassium Chloride 8 meq PO DAILY 08/30/18 [History] Simvastatin 1 tab PO DAILY 08/30/18 [History] Escitalopram Oxalate [Lexapro] 1 tab PO DAILY 01/17/20 [History] Hx Tetanus, Diphtheria Vaccination/Date Given: Yes Hx Influenza Vaccination/Date Given: Yes Hx Pneumococcal Vaccination/Date Given: No Immunizations Up to Date: Yes - Review of Systems Constitutional: No Fever, No Chills Eyes: No Symptoms Ears, Nose, & Throat: No Symptoms Respiratory: No Cough, No Dyspnea Cardiac: No Chest Pain, No Edema, No Syncope Abdominal/Gastrointestinal: No Abdominal Pain, No Nausea, No Vomiting, No Diarrhea Genitourinary Symptoms: No Dysuria Musculoskeletal: Other (Leg swelling and pain ), No Back Pain, No Neck Pain Skin: No Rash Neurological: No Dizziness, No Focal Weakness, No Sensory Changes Psychological: No Symptoms Endocrine: No Symptoms All Other Systems: Reviewed and Negative - Past Medical History Pertinent Past Medical History: Yes Neurological History: No Pertinent History ENT History: No Pertinent History Cardiac History: High Cholesterol Respiratory History: Asthma, Bronchitis, COPD, Emphysema Endocrine Medical History: Diabetes Type II Musculoskeletal History: Other GI Medical History: Other History: No Pertinent History Psycho-Social History: Anxiety, Depression Female Reproductive Disorders: No Pertinent History Other Medical History: ROTATOR CUFF TEAR WITH RECENT REPAIR. NARCOLEPSY, ANXIETY/DEPRESSION. SX HX: APPENDECTOMY, PARTIAL HYSTERECTOMY, CHOLECYSTECTOMY , RIGHT ROTATOR CUFF REPAIR - Past Surgical History Past Surgical History: Yes Neuro Surgical History: No Pertinent History Cardiac: No Pertinent History Respiratory: No Pertinent History Gastrointestinal: Appendectomy, Cholecystectomy Genitourinary: Other Musculoskeletal: No Pertinent History Female Surgical History: Hysterectomy Other Surgical History: bladder, lift, left knee, cyst right ovary - Social History Smoking Status: Current every day smoker How long have you smoked: YRS Exposure to second hand smoke: No Drug Use: none Patient Lives Alone: No Significant Family History: no pertinent family hx - Female History Hx Last Menstrual Period: partial hysterectomy Hx Now: No - Nursing Vital Signs Nursing Vital Signs: Initial Vital Signs Temperature 98.1 F 01/17/20 15:00 Pulse Rate 88 01/17/20 15:00 Respiratory Rate 18 01/17/20 15:00 Blood Pressure 100/79 01/17/20 15:00 O2 Sat by Pulse Oximetry 94 L 01/17/20 15:00 Pain Scale Pain Intensity 4 - Physical Exam General Appearance: alert Eyes, Ears, Nose, Throat Exam: moist mucous membranes Neck Exam: non-tender, supple Cardiovascular/Respiratory Exam: chest non-tender, normal breath sounds, regular rate/rhythm, no respiratory distress Gastrointestinal/Abdominal Exam: non-tender, guarding Back Exam: normal inspection, No vertebral tenderness Neuro/Tendon Exam: normal sensation, normal motor functions Mental Status Exam: alert, oriented x 3, cooperative Skin Exam: normal color, warm, dry SpO2 Interpretation: normal SpO2: 94 Comments: Left lower leg is tender. No obvious deformity, sensation intact, 2+ capillary refill, 2 point tactile discrimination intact. 5 out of 5 strength. Full range of motion without pain. Compartments are soft, nontender. Overlying skin shows no tenting, bruising, ecchymosis. Ordered Tests: Active Orders 24 hr Category Date Time Status Ultrasound Unilateral Extremities [VENOUS UNILAT/ Exams 01/17/20 15:33 Completed LIMITED EXTREMIT] [US] Stat - Progress Progress: improved Progress Note: 01/17/20 15:20 We will obtain an ultrasound of the left lower leg looking for DVT. No chest pain, signs or symptoms of a pulmonary embolism at this point in time. 01/17/20 16:39 No DVT on US. Patient feeling improved. We will discharge Patient home at this point in time. - Departure Departure Disposition: Home Clinical Impression: Left leg swelling Condition: Stable Critical Care Time: No Referrals: KIMBERLY DUKES [Primary Care Provider] - Instructions: Chronic Pain (DC)
--- NOTE | 2020-01-17 16:24 | XRAY ---
Indication: Left leg swelling. 2-dimensional sonogram and color Doppler imaging of the major venous vessels of the left leg was performed. Comparison: None No thrombus seen in the examined deep venous vessels of the left leg including greater saphenous vein. Veins demonstrate normal compressibility. Venous waveforms are normal with and without augmentation. Impression: Left leg negative for DVT.
[2020-01-17 16:28] VITALS: O2SAT 94
[2020-01-17 16:34] VITALS: BP 109/66
== END 2020-01-17 16:34 | disposition home or self-care (01) ==
LOC: ED 14:55
DX: M79.89 Other specified soft tissue disorders (principal)
CPT/HCPCS: 93971; 99283

== ENCOUNTER 2020-09-07 09:15 | Day surgery (SDC) | payer MEDICARE ==
[~2020-09-07 09:15] MED LIST changes: +BUPIVACAINE 0.5% VIAL IJ ONE; +DIPRIVAN 200 MG/20 ML IV ONE; +Lactated Ringers 1,000 ML IV ONE; -Lactated Ringers 1,000 ML IV SCH; +SUBLIMAZE 100 MCG/2 ML ONE; +Versed 2 MG/2 ML Injection ONE; +XYLOCAINE 1% HCL 20 ML MDV ONE; +Xylocaine-Mpf 2% 5 Ml Vial ONE
[2020-09-07] MEDS ORDERED: CEFAZOLIN 2 GM-D5W BAG** 2 GM/50 ML ML IV SCH (09:30)
[2020-09-07] MEDS ORDERED: Lactated Ringers 1,000 ML IV SCH (09:30)
[2020-09-07 10:40] LABS: Hematocrit 50.4 % (35-47); Mean Cell Volume 94.2 fl (78-100); Mean Corpuscular Hemoglobin 29.9 pg (26-32); Mean Corpuscular Hgb Concent. 31.7 g/dl (32-36); Mean Platelet Volume 10.3 fl (7.5-11.0); Platelet Count 224 K/mm3 (150-450); Red Blood Count 5.35 M/mm3 (4.1-5.4); Red Cell Distribution Width 14.5 % (11.5-14.0); White Blood Count 7.1 K/mm3 (4.0-10.5)
[2020-09-07 10:53] LABS: ALBUMIN 4.2 g/dL (3.5-5.0); ALKALINE PHOSPHATASE 76 U/L (38-126); ANION GAP 7.1 MEQ/L (5-15); BLOOD UREA NITROGEN 11 mg/dL (7-17); CHLORIDE 109 mmol/L (98-107); Calcium 9.5 mg/dL (8.4-10.2); Carbon Dioxide 29 mmol/L (22-30); Creatinine 1 0.66 mg/dL (0.52-1.04); EST GLOMERULAR FILTRATION RATE > 60.0 ML/MIN; Glucose 120 mg/dL (74-106); Potassium 4.6 mmol/L (3.5-5.1); SGOT/AST 18 U/L (14-36); SGPT/ALT 15 U/L (0-35); SODIUM 141 mmol/L (137-145); Total Protein 7.1 g/dL (6.3-8.2)
--- NOTE | 2020-09-07 12:02 | XRAY ---
Indication: Exostectomy of ostial site. Intraoperative fluoroscopy was provided for 39 seconds. 3 digital spot images of right mid foot demonstrates a plantar metallic localizer tip at the tarsometatarsal junction. Correlate with intraoperative findings/report.
[2020-09-07 14:05] VITALS: BP 136/64; PULSE 74; O2SAT 94
--- NOTE | 2020-09-07 22:09 | XRAY ---
39 seconds of fluoroscopy was used in surgery for a exostectomy of osteal site right foot.
--- NOTE | 2020-09-10 09:19 | OP ---
SURGERY DATE: 09/07/2020 1110 PREOPERATIVE DIAGNOSIS: Painful exostosis of the right foot at the first tarsometatarsal joint. POSTOPERATIVE DIAGNOSIS: Painful exostosis of the right foot at the first tarsometatarsal joint. PROCEDURE: Exostectomy right foot. SURGEON: Anival Freeman DPM. INTERIOR SPECIALIST: None. ANESTHESIA: MAC plus local. HEMOSTASIS: None. ESTIMATED BLOOD LOSS: 10 cc. MATERIALS: 2-0 Vicryl, 3-0 Nylon. INJECTABLES: 20 cc of 1:1 mixture of 0.5% Marcaine plain and 1% lidocaine plain for a total of 20 cc. DESCRIPTION OF PROCEDURE AND FINDINGS: Following adequate assessment by the anesthesia team, the patient was brought into the OR and placed on the OR table in the supine position. At this time anesthesia administered light sedation with monitored anesthesia care. A preoperative injection consisting of a 1:1 mixture of 0.5% Marcaine plain and 1% lidocaine plain was injected in a V-type block fashion at the proximal extent of the lesion to be excised. At this time the right foot was prepped and draped in the typical sterile fashion and the lower extremity was lowered onto the surgical field. At this time the fluoroscopy was brought in to assess the exact location of the exostosis which could be felt clinically. Once located intraoperatively, an incision dorsal to the aspect of the lesion was made utilizing a 15 blade protecting any neurovascular structures and cauterizing bleeders as necessary. At this time, the bone was encountered and excised utilizing an osteotome and a mallet this was then checked under fluoroscopy and deemed to be adequate. The surface of the bone excised was rasped with a hand rasp until smooth. The joints were then checked for any remaining particulate and a copious amount of sterile saline was utilized to lavage the surgical site. At this time a 2-0 Vicryl was utilized to coapt the edges of the skin and a horizontal mattress-type suture was utilized to homa the skin edges in a horizontal mattress-type fashion. At this time the lower extremity was wiped down with a wet lap and dried with a dry lap. Dressing consisting of Betadine, Adaptic, 4x4's, Kerlix, JACQUELINE and short leg Cam boot was provided to the patient. At this time the patient was reversed from anesthesia and returned to the postoperative anesthesia care unit with vital signs stable and vascular status intact. She handled the anesthesia as well as the procedure without incident. Postoperative orders as follows: 1) Keep postoperative dressing clean, dry and intact. Do not alter the dressings in any way without consulting Dr. Anival william. Dressings to remain dry throughout the postoperative period. 2) Elevate operative extremity to the level of the heart to reduce inflammation and pain. 3) Ice behind the knee to reduce inflammation. 4) Full weight bearing to the right lower extremity with the assistance of the short leg Cam walker. 5) Postoperative pain: Letcher 5/325 mg every 4 to 6 hours for breakthrough pain, alternate with ibuprofen 600 mg every 6 hours. 6) Postoperative infection prophylaxis: Keflex 500 mg every 6 hours for ten days. 7) Postoperative deep venous thrombosis prophylaxis: Blood clot prophylaxis - Aspirin 325 mg p.o. daily. 8) Follow up in clinic within one week of the procedure. 9) Discharge the patient to home.
== END 2020-09-07 13:00 | disposition home or self-care (01) ==
LOC: SDC 09:15
PROVIDERS: ATTEND Podiatrist Foot & Ankle Surgery
DX: M25.774 Osteophyte, right foot (principal); M79.671 Pain in right foot; Z86.79 Personal history of other diseases of the circulatory system; Z79.899 Other long term (current) drug therapy; E11.9 Type 2 diabetes mellitus without complications; J44.9 Chronic obstructive pulmonary disease, unspecified; E78.00 Pure hypercholesterolemia, unspecified
CPT/HCPCS: 28100; 36415; 73620; 76000; 80053; 85027; 88311; 93005; J0690; J2250; J2704; J3010

== ENCOUNTER 2021-06-14 05:58 | Day surgery (SDC) | payer MEDICARE ==
[2021-06-14] MEDS ORDERED: Lactated Ringers 1,000 ML IV SCH (06:30)
[2021-06-14] MEDS ORDERED: DIPRIVAN 200 MG/20 ML IV ONE ×3 (07:47→08:18)
[2021-06-14] MEDS ORDERED: Ketamine HCl 50 MG/ML ONE (08:09)
[2021-06-14 08:51] VITALS: O2SAT 96
[2021-06-14 09:00] VITALS: PULSE 81
[2021-06-14 09:15] VITALS: BP 146/77
--- NOTE | 2021-06-14 09:24 | OP ---
SURGERY DATE/TIME: 06/14/2021 0749 PREOPERATIVE DIAGNOSIS: Screening exam. POSTOPERATIVE DIAGNOSIS: Normal colon. PROCEDURE: Colonoscopy. SURGEON: Dr. Zhang. ANESTHESIA: MAC. Medications given by anesthesia department. HISTORY: The patient is a 50 year-old white female presenting now for screening colonoscopy. She was appraised of the risks of the procedure including the risk of perforation, phlebitis, untoward reaction to medication, bleeding and missed lesions. The patient verbalized her understanding and desired to have the procedure performed. DESCRIPTION OF PROCEDURE: The patient was given the medications by the anesthesia department. She had continuous pulse oximetry, ECG monitoring, intermittent blood pressure monitoring and tidal CO2 monitoring during the examination. She was placed in the left lateral decubitus position. A digital rectal examination was performed and revealed normal anal sphincter tone and no masses. The flexible Olympus pediatric colonoscope was used to intubate the rectum. A view of the colon was developed sequentially to the cecum. Upon insertion and withdrawal, including a retroflex view in the rectum, no mucosal lesions were noted. The prep quality however was noted to be only fair and the patient did have infiltration of the IV during the procedure and a second IV had to be started by anesthesia to keep the patient comfortable.
== END 2021-06-14 09:18 | disposition home or self-care (01) ==
LOC: SDC 05:58
PROVIDERS: ATTEND Family Medicine
DX: Z12.11 Encounter for screening for malignant neoplasm of colon (principal); E11.9 Type 2 diabetes mellitus without complications; Z79.899 Other long term (current) drug therapy
CPT/HCPCS: 82947; J2704

== ENCOUNTER 2021-07-24 16:10 | Emergency (ER) | payer MEDICARE ==
[2021-07-24 17:25] LABS: Absolute Neutrophil Ct (ANC) 7.87 (1.4-6.9); BASOPHIL % 0.2 % (0.0-0.4); Basophil (Absolute #) 0.02 (0-0.4); Eosinophil % 1.2 % (0.00-5.0); Eosinophil (Absolute #) 0.13 (0-0.5); Hematocrit 49.2 % (35-47); Lymphocyte (Absolute #) 2.34 (1.0-4.6); Lymphocytes % 21.1 % (24.0-44.0); Mean Cell Volume 90.4 fl (78-100); Mean Corpuscular Hemoglobin 29.4 pg (26-32); Mean Corpuscular Hgb Concent. 32.5 g/dl (32-36); Mean Platelet Volume 10.1 fl (7.5-11.0); Monocyte (Absolute #) 0.71 (0.0-1.3); Monocytes % 6.4 % (0.0-12.0); Neutrophil % 71.1 % (36.0-66.0); Platelet Count 235 K/mm3 (150-450); Red Blood Count 5.44 M/mm3 (4.1-5.4); Red Cell Distribution Width 14.5 % (11.5-14.0); White Blood Count 11.1 K/mm3 (4.0-10.5)
[2021-07-24 17:27] LABS: ACETAMINOPHEN < 10 ug/ml (10-30); ALBUMIN 4.4 g/dL (3.5-5.0); ALKALINE PHOSPHATASE 57 U/L (38-126); BLOOD UREA NITROGEN 14 mg/dL (7-17); CHLORIDE 106 mmol/L (98-107); Carbon Dioxide 23 mmol/L (22-30); Creatinine 1 0.61 mg/dL (0.52-1.04); EST GLOMERULAR FILTRATION RATE > 60.0 ML/MIN; ETHYL ALCOHOL < 10 mg/dL (0-10); Glucose 127 mg/dL (74-106); Potassium 3.9 mmol/L (3.5-5.1); SALICYLATE < 1.0 mg/dL (2-20); SGOT/AST 37 U/L (14-36); SGPT/ALT 52 U/L (0-35); SODIUM 140 mmol/L (137-145); Total Protein 7.5 g/dL (6.3-8.2)
--- NOTE | 2021-07-24 17:31 | ERPHSYRPT ---
- History of Present Illness Time Seen by Provider: 07/24/21 16:40 Exam Limitations: no limitations Patient Subjective Stated Complaint: Pt got into a fight with her boyfriend and so she took the remainder of her pills in her pill reminder, there were 4 days of pills taken Triage Nursing Assessment: Pt brought to the ER by her friend, vikas inman, denies pain, drowsy, states that she had been in a fight with her boyfriend and he wanted her to leave and she got upset and took all of the remainder pills in her pill reminder, pt then called her friend and then drove to her friends work and then was brought to the ER, pt is lethargic, answers questions, hx of taking pills to harm herself years ago, pulses normal, sinus rhythm, skin n/w/d, poison control said to observe 8 hours from ingestion which was at 1400 Physician History: Patient is a 50-year-old female presents to our ED for evaluation of overdose. Patient states she got into a disagreement with her boyfriend. Patient became upset and overdosed on her pills. Patient ingested a pill Allergies/Adverse Reactions: miconazole nitrate [From Monistat 3] Allergy (Severe, Verified 07/24/21 16:41) Hives Home Medications: Albuterol Sulfate [Ventolin Hfa] 18 gm IH HS 04/01/18 [History] Cyclobenzaprine HCl 10 mg [Cyclobenzaprine 10 MG] 10 mg PO TID 04/01/18 [History] Dicyclomine HCl 20 mg [Bentyl 20 mg] 20 mg PO QID 04/01/18 [History] Gabapentin 300 mg PO HS 04/01/18 [History] Montelukast Sodium [Singulair] 10 mg PO HS 04/01/18 [History] Sennosides/Docusate Sodium [Dok Plus Tablet] 500 each PO BID 04/01/18 [History] Albuterol 2.5 mg/3 ml Neb [Proventil 2.5 mg/3 ml Neb] 2.5 mg IH TID 08/16/20 [History] Aspirin EC 81 mg [Ecotrin 81 mg] 81 mg PO DAILY 08/16/20 [History] Fluticasone/Vilanterol [Breo Ellipta 100-25 Mcg INH] 1 inhaler IH DAILY 08/16/20 [History] Omeprazole 40 mg PO DAILY 08/16/20 [History] Armodafinil [Nuvigil] 250 mg PO DAILY 05/07/21 [History] Escitalopram Oxalate [Lexapro] 20 mg PO HS 06/10/21 [History] Esomeprazole Magnesium [Nexium] 20 mg PO DAILY 06/10/21 [History] Fenofibrate Nanocrystallized [Tricor] 48 mg PO DAILY 06/10/21 [History] Lorazepam 0.5 mg [Ativan 0.5 MG] 0.5 mg PO HS 06/10/21 [History] Metformin HCl 500 mg [Glucophage 500 MG] 500 mg PO DAILY 06/10/21 [History] Simvastatin 10 mg [Zocor 10MG] 10 mg PO QPM 06/10/21 [History] Solifenacin Succinate [Vesicare] 10 mg PO DAILY 06/10/21 [History] Hx Tetanus, Diphtheria Vaccination/Date Given: Yes Hx Influenza Vaccination/Date Given: Yes Hx Pneumococcal Vaccination/Date Given: No Travel Risk - International Travel Have you traveled outside of the country in past 3 weeks: No - Coronavirus Screening Are you exhibiting any of the following symptoms?: No Close contact with a COVID-19 positive Pt in past 14-21 Days: No - Vaccine Status Have you recieved a Covid-19 vaccination: Yes Insurance 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: Moderna - Vaccination Dates Date of 2cond Vaccination (if applicable): 03/07/21 - Past Medical History Pertinent Past Medical History: Yes Neurological History: No Pertinent History ENT History: No Pertinent History Cardiac History: Congestive Heart Failure, Deep Vein Thrombosis, High Cholesterol Respiratory History: Asthma, Bronchitis, COPD, Emphysema Endocrine Medical History: Diabetes Type II Musculoskeletal History: Other GI Medical History: GERD, Other History: No Pertinent History Psycho-Social History: Anxiety, Depression Female Reproductive Disorders: No Pertinent History Other Medical History: ROTATOR CUFF TEAR WITH RECENT REPAIR. NARCOLEPSY, ANXIETY/DEPRESSION. SX HX: APPENDECTOMY, PARTIAL HYSTERECTOMY, CHOLECYSTECTOMY, RIGHT ROTATOR CUFF REPAIR - Past Surgical History Past Surgical History: Yes Neuro Surgical History: No Pertinent History Cardiac: No Pertinent History Respiratory: No Pertinent History Gastrointestinal: Appendectomy, Cholecystectomy Genitourinary: Other Musculoskeletal: Orthopedic Surgery Female Surgical History: Hysterectomy Other Surgical History: bladder, lift, left knee, cyst right ovary,shoulder - Social History Smoking Status: Current every day smoker How long have you smoked: 43 years Exposure to second hand smoke: Yes Drug Use: none Patient Lives Alone: No Significant Family History: no pertinent family hx - Female History Hx Now: No - Nursing Vital Signs Nursing Vital Signs: Initial Vital Signs Temperature 97.8 F 07/24/21 16:16 Pulse Rate 93 H 07/24/21 16:16 Respiratory Rate 12 07/24/21 16:16 Blood Pressure 115/96 07/24/21 16:16 O2 Sat by Pulse Oximetry 93 L 07/24/21 16:16 Pain Scale Pain Intensity 0 - Physical Exam SpO2: 93 Ordered Tests: Active Orders 24 hr Category Date Time Status 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
--- NOTE | 2021-07-24 17:35 | ERPHSYRPT ---
- History of Present Illness Time Seen by Provider: 07/24/21 16:40 Patient Subjective Stated Complaint: Pt got into a fight with her boyfriend and so she took the remainder of her pills in her pill reminder, there were 4 days of pills taken Triage Nursing Assessment: Pt brought to the ER by her friend, vikas inman, denies pain, drowsy, states that she had been in a fight with her boyfriend and he wanted her to leave and she got upset and took all of the remainder pills in her pill reminder, pt then called her friend and then drove to her friends work and then was brought to the ER, pt is lethargic, answers questions, hx of taking pills to harm herself years ago, pulses normal, sinus rhythm, skin n/w/d, poison control said to observe 8 hours from ingestion which was at 1400 Physician History: Patient is a 50-year-old female presents to our ED for evaluation of overdose. Patient states she got into a disagreement with her boyfriend. Patient became upset and overdosed on her pills. Patient texted her friend and told her what she had done. Patient then drove to her friend's work. Friend observed patient was lethargic. Patient then brought to our ED. Patient ingested dicyclomine, diclofenac, Lexapro, simvastatin, cyclobenzaprine, montelukast, clonazepam, gabapentin. We contacted poison control and they advised observance for 8 hours. Patient currently poor story due to overdose. There is no trauma. No fever. No nausea or vomiting. Timing/Duration: today Severity of Symptoms-Max: moderate Severity of Symptoms-Current: mild Context related to: significant other Suicidal thoughts: attempt Associated Symptoms: denies symptoms Previous symptoms: same symptoms as today Allergies/Adverse Reactions: miconazole nitrate [From Monistat 3] Allergy (Severe, Verified 07/24/21 16:41) Hives Home Medications: Albuterol Sulfate [Ventolin Hfa] 18 gm IH HS 04/01/18 [History] Cyclobenzaprine HCl 10 mg [Cyclobenzaprine 10 MG] 10 mg PO TID 04/01/18 [History] Dicyclomine HCl 20 mg [Bentyl 20 mg] 20 mg PO QID 04/01/18 [History] Gabapentin 300 mg PO HS 04/01/18 [History] Montelukast Sodium [Singulair] 10 mg PO HS 04/01/18 [History] Sennosides/Docusate Sodium [Dok Plus Tablet] 500 each PO BID 04/01/18 [History] Albuterol 2.5 mg/3 ml Neb [Proventil 2.5 mg/3 ml Neb] 2.5 mg IH TID 08/16/20 [History] Aspirin EC 81 mg [Ecotrin 81 mg] 81 mg PO DAILY 08/16/20 [History] Fluticasone/Vilanterol [Breo Ellipta 100-25 Mcg INH] 1 inhaler IH DAILY 08/16/20 [History] Omeprazole 40 mg PO DAILY 08/16/20 [History] Armodafinil [Nuvigil] 250 mg PO DAILY 05/07/21 [History] Escitalopram Oxalate [Lexapro] 20 mg PO HS 06/10/21 [History] Esomeprazole Magnesium [Nexium] 20 mg PO DAILY 06/10/21 [History] Fenofibrate Nanocrystallized [Tricor] 48 mg PO DAILY 06/10/21 [History] Lorazepam 0.5 mg [Ativan 0.5 MG] 0.5 mg PO HS 06/10/21 [History] Metformin HCl 500 mg [Glucophage 500 MG] 500 mg PO DAILY 06/10/21 [History] Simvastatin 10 mg [Zocor 10MG] 10 mg PO QPM 06/10/21 [History] Solifenacin Succinate [Vesicare] 10 mg PO DAILY 06/10/21 [History] Hx Tetanus, Diphtheria Vaccination/Date Given: Yes Hx Influenza Vaccination/Date Given: Yes Hx Pneumococcal Vaccination/Date Given: No Travel Risk - International Travel Have you traveled outside of the country in past 3 weeks: No - Coronavirus Screening Are you exhibiting any of the following symptoms?: No Close contact with a COVID-19 positive Pt in past 14-21 Days: No - Vaccine Status Have you recieved a Covid-19 vaccination: Yes Airport Location Manager: Moderna - Vaccination Dates Date of 2cond Vaccination (if applicable): 03/07/21 - Past Medical History Pertinent Past Medical History: Yes Neurological History: No Pertinent History ENT History: No Pertinent History Cardiac History: Congestive Heart Failure, Deep Vein Thrombosis, High Cholesterol Respiratory History: Asthma, Bronchitis, COPD, Emphysema Endocrine Medical History: Diabetes Type II Musculoskeletal History: Other GI Medical History: GERD, Other History: No Pertinent History Psycho-Social History: Anxiety, Depression Female Reproductive Disorders: No Pertinent History Other Medical History: ROTATOR CUFF TEAR WITH RECENT REPAIR. NARCOLEPSY, ANXIETY/DEPRESSION. SX HX: APPENDECTOMY, PARTIAL HYSTERECTOMY, CHOLECYSTECTOMY, RIGHT ROTATOR CUFF REPAIR - Past Surgical History Past Surgical History: Yes Neuro Surgical History: No Pertinent History Cardiac: No Pertinent History Respiratory: No Pertinent History Gastrointestinal: Appendectomy, Cholecystectomy Genitourinary: Other Musculoskeletal: Orthopedic Surgery Female Surgical History: Hysterectomy Other Surgical History: bladder, lift, left knee, cyst right ovary,shoulder - Social History Smoking Status: Current every day smoker How long have you smoked: 43 years Exposure to second hand smoke: Yes Drug Use: none Patient Lives Alone: No Significant Family History: no pertinent family hx - Female History Hx Now: No - Review of Systems Constitutional: No Symptoms, No Fever, No Chills Eyes: No Symptoms Ears, Nose, & Throat: No Symptoms Respiratory: No Symptoms, No Cough, No Dyspnea Cardiac: No Symptoms, No Chest Pain, No Edema, No Syncope Abdominal/Gastrointestinal: No Symptoms, No Abdominal Pain, No Nausea, No Vomiting, No Diarrhea Genitourinary Symptoms: No Symptoms, No Dysuria Musculoskeletal: No Symptoms, No Back Pain, No Neck Pain Skin: No Symptoms, No Rash Neurological: No Symptoms, No Dizziness, No Focal Weakness, No Sensory Changes Psychological: No Symptoms Endocrine: No Symptoms Hematologic/Lymphatic: No Symptoms Immunological/Allergic: No Symptoms All Other Systems: Reviewed and Negative - Nursing Vital Signs Nursing Vital Signs: Initial Vital Signs Temperature 97.8 F 07/24/21 16:16 Pulse Rate 93 H 07/24/21 16:16 Respiratory Rate 12 07/24/21 16:16 Blood Pressure 115/96 07/24/21 16:16 O2 Sat by Pulse Oximetry 93 L 07/24/21 16:16 Pain Scale Pain Intensity 0 - Physical Exam General Appearance: no apparent distress, other (Patient lying in bed sleeping. She is responsive to verbal and tactile stimulation.) Eyes, Ears, Nose, Throat Exam: normal ENT inspection, moist mucous membranes Neck Exam: normal inspection, non-tender, supple Respiratory Exam: normal breath sounds, lungs clear, No respiratory distress Cardiovascular Exam: regular rate/rhythm, No edema Gastrointestinal/Abdominal Exam: soft, No tenderness, No distention Extremities Exam: normal inspection, normal range of motion, No evidence of injury, No edema Current Suicidality: denies suicide plan Neurological Exam: alert, calm, folder operator II-XII nml as tested, oriented x 3 Appearance: appropriate appearance, appropriate insight Behavior/Eye Contact/Speech: alert & cooperative, cooperative, good eye contact, normal speech Thoughts/Hallucinations: normal thought pattern Skin Exam: normal color, warm, dry, No rash SpO2 Interpretation: normal SpO2: 93 O2 Delivery: Room Air - Course Nursing assessment & vital signs reviewed: Yes Ordered Tests: Active Orders 24 hr Category Date Time Status Lumber 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 STAT Care 07/24/21 17:14 Active ACETAMINOPHEN Stat Lab 07/24/21 17:11 Completed CBC W DIFF Stat Lab 07/24/21 17:11 Completed CMP Stat Lab 07/24/21 17:11 Completed ETHYL ALCOHOL Stat Lab 07/24/21 17:11 Completed SALICYLATE Stat Lab 07/24/21 17:11 Completed UA W/RFX UR CULTURE Stat Lab 07/24/21 19:37 Completed Urine Triage Profile Stat Lab 07/24/21 19:37 Completed Lab/Rad Data: Laboratory Result Diagrams 07/24/21 17:11 07/24/21 17:11 Laboratory Results 07/24/21 07/24/21 07/24/21 Range/Units 23:15 19:37 19:37 WBC (4.0-10.5) K/mm3 RBC (4.1-5.4) M/mm3 Hgb (12.0-16.0) gm/dl Hct (35-47) % MCV (78-100) fl MCH (26-32) pg MCHC (32-36) g/dl RDW (11.5-14.0) % Plt Count (150-450) K/mm3 MPV (7.5-11.0) fl Gran % (36.0-66.0) % Eos # (Auto) (0-0.5) Absolute Lymphs (auto) (1.0-4.6) Absolute Monos (auto) (0.0-1.3) Lymphocytes % (24.0-44.0) % Monocytes % (0.0-12.0) % Eosinophils % (0.00-5.0) % Basophils % (0.0-0.4) % Absolute Granulocytes (1.4-6.9) Basophils # (0-0.4) Sodium (137-145) mmol/L Potassium (3.5-5.1) mmol/L Chloride (98-107) mmol/L Carbon Dioxide (22-30) mmol/L Anion Gap (5-15) MEQ/L BUN (7-17) mg/dL Creatinine (0.52-1.04) mg/dL Estimated GFR ML/MIN Glucose (74-106) mg/dL Calcium (8.4-10.2) mg/dL Total Bilirubin (0.2-1.3) mg/dL AST (14-36) U/L ALT (0-35) U/L Alkaline Phosphatase (38-126) U/L Serum Total Protein (6.3-8.2) g/dL Albumin (3.5-5.0) g/dL Urine Color JOSE ANTONIO (YELLOW) Urine Appearance CLOUDY (CLEAR) Urine pH 5.0 (5-6) Ur Specific [place] 1.015 (1.005-1.025) Urine Protein 30 (Negative) Urine Ketones NEGATIVE (NEGATIVE) Urine Blood NEGATIVE (0-5) Anam/ul Urine Nitrite NEGATIVE (NEGATIVE) Urine Bilirubin NEGATIVE (NEGATIVE) Urine Urobilinogen 2 (0-1) mg/dL Ur Leukocyte Esterase TRACE (NEGATIVE) Urine WBC (Auto) 0-2 (0-5) /HPF Urine RBC (Auto) NONE (0-2) /HPF U Hyaline Cast (Auto) 6-10 (0-2) /LPF U Epithel Cells (Auto) RARE (FEW) /HPF Urine Bacteria (Auto) NONE (NEGATIVE) /HPF Urine Mucus (Auto) SLIGHT (NEGATIVE) /HPF Urine Culture Reflexed NO (NO) Urine Glucose NEGATIVE (NEGATIVE) mg/dL Salicylates (2-20) mg/dL Urine Opiates Level NEGATIVE (NEGATIVE) Ur Methadone NEGATIVE (NEGATIVE) Acetaminophen (10-30) ug/ml Urine Barbiturates NEGATIVE (NEGATIVE) Ur Phencyclidine (PCP) NEGATIVE (NEGATIVE) Urine Amphetamine POSITIVE (NEGATIVE) U Benzodiazepine Level NEGATIVE (NEGATIVE) Urine Cocaine NEGATIVE (NEGATIVE) Urine Marijuana (THC) POSITIVE (NEGATIVE) Ethyl Alcohol (0-10) mg/dL SARS-CoV-2 Ag (Rapid) NEGATIVE (NEGATIVE) 07/24/21 07/24/21 Range/Units 17:11 17:11 WBC 11.1 H (4.0-10.5) K/mm3 RBC 5.44 H (4.1-5.4) M/mm3 Hgb 16.0 (12.0-16.0) gm/dl Hct 49.2 H (35-47) % MCV 90.4 (78-100) fl MCH 29.4 (26-32) pg MCHC 32.5 (32-36) g/dl RDW 14.5 H (11.5-14.0) % Plt Count 235 (150-450) K/mm3 MPV 10.1 (7.5-11.0) fl Gran % 71.1 H (36.0-66.0) % Eos # (Auto) 0.13 (0-0.5) Absolute Lymphs (auto) 2.34 (1.0-4.6) Absolute Monos (auto) 0.71 (0.0-1.3) Lymphocytes % 21.1 L (24.0-44.0) % Monocytes % 6.4 (0.0-12.0) % Eosinophils % 1.2 (0.00-5.0) % Basophils % 0.2 (0.0-0.4) % Absolute Granulocytes 7.87 H (1.4-6.9) Basophils # 0.02 (0-0.4) Sodium 140 (137-145) mmol/L Potassium 3.9 (3.5-5.1) mmol/L Chloride 106 (98-107) mmol/L Carbon Dioxide 23 (22-30) mmol/L Anion Gap 15.0 (5-15) MEQ/L BUN 14 (7-17) mg/dL Creatinine 0.61 (0.52-1.04) mg/dL Estimated GFR > 60.0 ML/MIN Glucose 127 H (74-106) mg/dL Calcium 10.0 (8.4-10.2) mg/dL Total Bilirubin 0.80 (0.2-1.3) mg/dL AST 37 H (14-36) U/L ALT 52 H (0-35) U/L Alkaline Phosphatase 57 (38-126) U/L Serum Total Protein 7.5 (6.3-8.2) g/dL Albumin 4.4 (3.5-5.0) g/dL Urine Color (YELLOW) Urine Appearance (CLEAR) Urine pH (5-6) Ur Specific [place] (1.005-1.025) Urine Protein (Negative) Urine Ketones (NEGATIVE) Urine Blood (0-5) Anam/ul Urine Nitrite (NEGATIVE) Urine Bilirubin (NEGATIVE) Urine Urobilinogen (0-1) mg/dL Ur Leukocyte Esterase (NEGATIVE) Urine WBC (Auto) (0-5) /HPF Urine RBC (Auto) (0-2) /HPF U Hyaline Cast (Auto) (0-2) /LPF U Epithel Cells (Auto) (FEW) /HPF Urine Bacteria (Auto) (NEGATIVE) /HPF Urine Mucus (Auto) (NEGATIVE) /HPF Urine Culture Reflexed (NO) Urine Glucose (NEGATIVE) mg/dL Salicylates < 1.0 L (2-20) mg/dL Urine Opiates Level (NEGATIVE) Ur Methadone (NEGATIVE) Acetaminophen < 10 L (10-30) ug/ml Urine Barbiturates (NEGATIVE) Ur Phencyclidine (PCP) (NEGATIVE) Urine Amphetamine (NEGATIVE) U Benzodiazepine Level (NEGATIVE) Urine Cocaine (NEGATIVE) Urine Marijuana (THC) (NEGATIVE) Ethyl Alcohol < 10 (0-10) mg/dL SARS-CoV-2 Ag (Rapid) (NEGATIVE) - Progress Progress: improved Progress Note: Patient reassessed. She is well. Patient medically cleared. Patient ANO x4. Patient evaluated and accepted by [facility]. The accepting physician is Dr. Gabi Covarrubias. Telephone number is [phone]. Portions of this note were created with voice recognition technology. There may be grammatical, spelling, punctuation or sound alike errors 07/25/21 01:55 Counseled pt/family regarding: lab results, diagnosis, rad results - Departure Departure Disposition: Home Clinical Impression: Proteinuria, amphetamine use, Marijuana use, Suicidal overdose Condition: Stable Critical Care Time: No Referrals: KIMBERLY DUKES [Primary Care Provider] -
[2021-07-24 19:59] LABS: Appearance CLOUDY (CLEAR); Bilirubin NEGATIVE (NEGATIVE); Blood NEGATIVE Ery/ul (0-5); Epithelial Cells RARE /HPF (FEW); Glucose NEGATIVE (NEGATIVE); Ketones NEGATIVE (NEGATIVE); Leukocyte Esterase TRACE (NEGATIVE); Mucus SLIGHT /HPF (NEGATIVE); Nitrite NEGATIVE (NEGATIVE); Protein,Urine Dip 30 (Negative); Specific Gravity 1.015 (1.005-1.025); Urobilinogen 2 mg/dL (0-1); WBC 0-2 /HPF (0-5)
[2021-07-24 20:01] LABS: Amphetamine,Urine POSITIVE (NEGATIVE); Barbiturate,Urine NEGATIVE (NEGATIVE); Benzodiazepine,Urine NEGATIVE (NEGATIVE); Cocaine,Urine NEGATIVE (NEGATIVE); Methadone,Urine NEGATIVE (NEGATIVE); Opiate,Urine NEGATIVE (NEGATIVE); PCP,Urine NEGATIVE (NEGATIVE); THC,Urine POSITIVE (NEGATIVE)
[2021-07-24 23:51] LABS: COVID AG -BINAX NOW RAPID TEST NEGATIVE (NEGATIVE)
[2021-07-25 03:09] VITALS: BP 135/79; PULSE 84; O2SAT 95
== END 2021-07-25 03:10 | disposition short-term general hospital (02) ==
LOC: ED 16:10
DX: T50.992A Poisoning by other drugs, medicaments and biological substances, intentional self-harm, initial encounter (principal); F19.90 Other psychoactive substance use, unspecified, uncomplicated; R80.9 Proteinuria, unspecified; R53.83 Other fatigue; F41.9 Anxiety disorder, unspecified; F32.9 Major depressive disorder, single episode, unspecified; F17.200 Nicotine dependence, unspecified, uncomplicated; Z79.899 Other long term (current) drug therapy; Z20.822 Contact with and (suspected) exposure to COVID-19
CPT/HCPCS: 36415; 80053; 80307; 81001; 85025; 93041; 99000; 99285; G0480

== ENCOUNTER 2023-12-07 09:41 | Emergency (ER) | payer MEDICARE ==
--- NOTE | 2023-12-07 09:47 | ERPHSYRPT ---
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 Patient was seen at outpatient clinic and because of low oxygen saturation level off of her oxygen, patient was sent to the emergency department. Patient admits that she is noncompliant with her home oxygen as well as nebulizer treatments and she continues to smoke cigarettes, quitting 2 days ago, per her report. Patient denies chest pain. She has not had a fever. She has no abdominal pain. She has no nausea vomiting or diarrhea symptoms. Timing/Duration: day(s) (4), worse Severity of Dyspnea-Max: moderate Severity of Dyspnea-Current: moderate Possible Cause: occasional episodes Modifying Factors: Improves With: coughing Associated Symptoms: cough, No chest pain/discomfort Allergies/Adverse Reactions: miconazole nitrate [From Monistat 3] Allergy (Severe, Verified 12/07/23 09:42) Hives Home Medications: Albuterol Sulfate [Ventolin Hfa] 18 gm IH HS 04/01/18 [History] Cyclobenzaprine HCl 10 mg [Cyclobenzaprine 10 MG] 10 mg PO TID 04/01/18 [History] Dicyclomine HCl 20 mg [Bentyl 20 mg] 20 mg PO QID 04/01/18 [History] Gabapentin 300 mg PO HS 04/01/18 [History] Montelukast Sodium [Singulair] 10 mg PO HS 04/01/18 [History] Sennosides/Docusate Sodium [Dok Plus Tablet] 500 each PO BID 04/01/18 [History] Albuterol 2.5 mg/3 ml Neb [Proventil 2.5 mg/3 ml Neb] 2.5 mg IH TID 08/16/20 [History] Aspirin EC 81 mg [Ecotrin 81 mg] 81 mg PO DAILY 08/16/20 [History] Fluticasone/Vilanterol [Breo Ellipta 100-25 Mcg Inhalr] 1 inhaler IH DAILY 08/16/20 [History] Omeprazole 40 mg PO DAILY 08/16/20 [History] armodafiniL [Nuvigil] 250 mg PO DAILY 05/07/21 [History] Esomeprazole Magnesium [Nexium] 20 mg PO DAILY 06/10/21 [History] Fenofibrate Nanocrystallized [Tricor] 48 mg PO DAILY 06/10/21 [History] Lorazepam 0.5 mg [Ativan 0.5 MG] 0.5 mg PO HS 06/10/21 [History] Metformin HCl 500 mg [Glucophage 500 MG] 500 mg PO DAILY 06/10/21 [History] Simvastatin 10 mg [Zocor 10MG] 10 mg PO QPM 06/10/21 [History] Solifenacin Succinate [Vesicare] 10 mg PO DAILY 06/10/21 [History] Lamotrigine 100 mg [lamICTAL 100MG TABLET] 100 mg PO DAILY 12/07/23 [History] Lisinopril 20 mg [Zestril 20 MG] 20 mg PO DAILY 12/07/23 [History] Hx Tetanus, Diphtheria Vaccination/Date Given: Yes Hx Influenza Vaccination/Date Given: Yes Hx Pneumococcal Vaccination/Date Given: No Travel Risk - International Travel Have you traveled outside of the country in past 3 weeks: No - Coronavirus Screening Are you exhibiting any of the following symptoms?: Yes Symptoms: Cough: New Onset, Shortness of Breath, Headaches/Body Aches/Fatigue Close contact with a COVID-19 positive Pt in past 14-21 Days: No - Vaccine Status Have you recieved a Covid-19 vaccination: Yes 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 - Vaccination Dates Date of 2cond Vaccination (if applicable): 03/07/21 - Review of Systems Constitutional: No Symptoms Eyes: No Symptoms Ears, Nose, & Throat: No Symptoms Respiratory: Cough, Dyspnea Cardiac: No Symptoms Abdominal/Gastrointestinal: No Symptoms Genitourinary Symptoms: No Symptoms Musculoskeletal: Arthralgias, Myalgias Skin: No Symptoms Neurological: Headache Psychological: No Symptoms Endocrine: No Symptoms Hematologic/Lymphatic: No Symptoms Immunological/Allergic: No Symptoms All Other Systems: Reviewed and Negative - Past Medical History Pertinent Past Medical History: Yes Neurological History: No Pertinent History ENT History: No Pertinent History Cardiac History: Hypertension Respiratory History: Asthma, COPD, Emphysema Endocrine Medical History: Diabetes Type II Musculoskeletal History: Osteoarthritis GI Medical History: GERD, Other History: No Pertinent History Psycho-Social History: Anxiety, Depression Female Reproductive Disorders: No Pertinent History Other Medical History: OA OF THE KNEES. - Past Surgical History Past Surgical History: Yes Neuro Surgical History: No Pertinent History Cardiac: No Pertinent History Respiratory: No Pertinent History Gastrointestinal: Appendectomy, Cholecystectomy Genitourinary: Other Musculoskeletal: Orthopedic Surgery Female Surgical History: Hysterectomy Other Surgical History: bladder, lift, left knee, cyst right ovary,shoulder - Social History Smoking Status: Current every day smoker How long have you smoked: 43 years Exposure to second hand smoke: Yes Drug Use: none Patient Lives Alone: No Significant Family History: no pertinent family hx - Nursing Vital Signs Nursing Vital Signs: Initial Vital Signs Pulse Rate 104 H 12/07/23 09:40 Respiratory Rate 21 12/07/23 09:40 Blood Pressure 137/96 12/07/23 09:40 O2 Sat by Pulse Oximetry 90 L 12/07/23 09:40 Pain Scale Pain Intensity 5 - Physical Exam General Appearance: no apparent distress, alert, anxiety Eye Exam: PERRL/EOMI, eyes nml inspection Ears, Nose, Throat Exam: hearing grossly normal, normal ENT inspection, normal pharynx Neck Exam: normal inspection, non-tender, supple, full range of motion Respiratory Exam: lungs clear, airway intact, wheezing (Bilateral diffuse expiratory), No chest tenderness, No respiratory distress, No accessory muscle use Cardiovascular/Chest Exam: tachycardia Abdominal/Gastrointestinal Exam: soft, normal bowel sounds, No tenderness Rectal Exam: not done Extremity Exam: non-tender, normal range of motion, normal inspection, normal capillary refill, no calf tenderness, no pedal edema, pelvis stable Neurologic Exam: alert, oriented x 3, cooperative, melter supervisor II-XII nml as tested, normal mood/affect, nml cerebellar function, nml station & gait, sensation nml Skin Exam: normal color, warm, dry Lymphatic Exam: No adenopathy SpO2 Interpretation: borderline oxygenation O2 Delivery: Nasal Cannula - Course Nursing assessment & vital signs reviewed: Yes EKG Interpreted by Me: RATE (106), Sinus Rhythm, LAFB, NORMAL INTERVALS, NORMAL QRS, Other (No acute ischemic changes on today's twelve-lead EKG) Ordered Tests: Active Orders 24 hr Category Date Time Status EKG-ER Only STAT Care 12/07/23 10:01 Active IV Insertion STAT Care 12/07/23 10:01 Active Pulse Oximetry (ED) STAT Care 12/07/23 10:01 Active CHEST 1 VIEW (PORTABLE) Stat Exams 12/07/23 10:01 Completed BLOOD CULTURE Stat Lab 12/07/23 10:30 Received CBC W DIFF Stat Lab 12/07/23 10:22 Completed CMP Stat Lab 12/07/23 10:22 Completed MONO SCREEN Stat Lab 12/07/23 10:22 Completed NT PRO BNPII Stat Lab 12/07/23 10:22 Completed TROPONIN Q4H Lab 12/07/23 10:22 Completed TROPONIN Q4H Lab 12/07/23 14:15 Ordered TROPONIN Q4H Lab 12/07/23 18:15 Ordered UA W/RFX UR CULTURE Stat Lab 12/07/23 11:30 Completed Respiratory Therapy Assessment DAILY RT 12/07/23 10:35 Active Medication Summary Discontinued Medications Generic Name Dose Route Start Last Admin Trade Name Freq PRN Reason Stop Dose Admin Albuterol/Ipratropium 3 ml 12/07/23 10:13 12/07/23 10:29 Ipratropium/Albuterol Sulfate 3 Ml Ampul.Neb IH 12/07/23 10:14 3 ml STAT ONE Administration Albuterol/Ipratropium Confirm 12/07/23 10:24 Ipratropium/Albuterol Sulfate 3 Ml Ampul.Neb Administered 12/07/23 10:25 Dose 3 ml IH .STK-MED ONE Methylprednisolone Sodium 0 mg 12/07/23 10:01 12/07/23 10:12 Succinate 125 mg/ Sterile IV 12/07/23 10:02 125 mg Water 2 ml STAT ONE Administration Ceftriaxone Sodium/Dextrose 1 g in 50 mls @ 100 mls/hr 12/07/23 11:30 12/07/23 11:42 Rocephin 1 Gm-D5w 50 Ml Bag IV 12/07/23 11:59 100 ml/hr STAT STA 100 mls/hr Administration Ceftriaxone Sodium/Dextrose Confirm 12/07/23 11:36 Rocephin 1 Gm-D5w 50 Ml Bag Administered 12/07/23 11:37 Dose 1 g in 50 mls @ ud IV .STK-MED ONE Methylprednisolone Sodium Succinate Confirm 12/07/23 10:05 Methylprednis Sod Succ 125 Mg/2 Ml Vial Administered 12/07/23 10:06 Dose 125 mg .ROUTE .STK-MED ONE Sterile Water Confirm 12/07/23 10:05 Water For Injection,Sterile 10 Ml Vial Administered 12/07/23 10:06 Dose 10 ml IJ .STK-MED ONE Lab/Rad Data: Laboratory Result Diagrams 12/07/23 10:22 12/07/23 10:22 Laboratory Results 12/07/23 12/07/23 12/07/23 Range/Units 11:30 10:22 10:22 WBC (4.0-10.5) x10^3/uL RBC (4.1-5.4) x10^6/uL Hgb (12.0-16.0) g/dL Hct (35-47) % MCV (78-100) fL MCH (26-32) pg MCHC (32-36) g/dL RDW (11.5-14.0) % Plt Count (150-450) x10^3/uL MPV (7.5-11.0) fL Gran % (36.0-66.0) % Immature Gran % (Auto) (0.00-0.4) % Nucleat RBC Rel Count (0.00-0.1) % Eos # (Auto) (0-0.5) x10^3/uL Immature Gran # (Auto) (0.00-0.03) x10^3u/L Absolute Lymphs (auto) (1.0-4.6) x10^3/uL Absolute Monos (auto) (0.0-1.3) x10^3/uL Absolute Nucleated RBC (0.00-0.01) x10^3u/L Lymphocytes % (24.0-44.0) % Monocytes % (0.0-12.0) % Eosinophils % (0.00-5.0) % Basophils % (0.0-0.4) % Absolute Granulocytes (1.4-6.9) x10^3/uL Basophils # (0-0.4) x10^3/uL Sodium (137-145) mmol/L Potassium (3.5-5.1) mmol/L Chloride (98-107) mmol/L Carbon Dioxide (22-30) mmol/L Anion Gap (5-15) MEQ/L BUN (7-17) mg/dL Creatinine (0.52-1.04) mg/dL Estimated GFR ML/MIN Glucose (74-106) mg/dL Calcium (8.4-10.2) mg/dL Total Bilirubin (0.2-1.3) mg/dL AST (14-36) U/L ALT (0-35) U/L Alkaline Phosphatase (38-126) U/L Troponin I (0.000-0.034) ng/mL NT-Pro-B Natriuret Pep (<300) pg/mL Serum Total Protein (6.3-8.2) g/dL Albumin (3.5-5.0) g/dL Urine Color Dark Yellow A (Yellow) Urine Appearance Clear (Clear) Urine pH 5.5 (4.6-8.0) Ur Specific [place] 1.020 (1.005-1.030) Urine Protein 100 A (Negative) Urine Glucose (UA) Negative (Negative) mg/dL Urine Ketones Negative (Negative) Urine Blood Negative (Negative) Urine Nitrite Negative (Negative) Urine Bilirubin Small A (Negative) Urine Urobilinogen 1.0 A (0.2) mg/dL Ur Leukocyte Esterase Negative (Negative) U Hyaline Cast (Auto) 11-20 (0-2) /LPF Urine Microscopic RBC 0-2 (0-5) /HPF Urine Microscopic WBC 3-5 (0-5) /HPF Ur Epithelial Cells Few (None Seen) /HPF Urine Bacteria Rare A (None Seen) /HPF Urine Culture Reflexed NO (NO) Monoscreen NEGATIVE (NEGATIVE) Influenza Type A Ag POSITIVE (NEGATIVE) Influenza Type B Ag NEGATIVE (NEGATIVE) RSV (PCR) NEGATIVE (NEGATIVE) SARS-CoV-2 (PCR) NEGATIVE (NEGATIVE) 12/07/23 12/07/23 12/07/23 Range/Units 10:22 10:22 10:22 WBC 5.7 (4.0-10.5) x10^3/uL RBC 5.89 H (4.1-5.4) x10^6/uL Hgb 16.9 H (12.0-16.0) g/dL Hct 53.0 H (35-47) % MCV 90.0 (78-100) fL MCH 28.7 (26-32) pg MCHC 31.9 L (32-36) g/dL RDW 13.2 (11.5-14.0) % Plt Count 176 (150-450) x10^3/uL MPV 10.0 (7.5-11.0) fL Gran % 63.4 (36.0-66.0) % Immature Gran % (Auto) 0.5 H (0.00-0.4) % Nucleat RBC Rel Count 0.0 (0.00-0.1) % Eos # (Auto) 0.01 (0-0.5) x10^3/uL Immature Gran # (Auto) 0.03 (0.00-0.03) x10^3u/L Absolute Lymphs (auto) 1.37 (1.0-4.6) x10^3/uL Absolute Monos (auto) 0.67 (0.0-1.3) x10^3/uL Absolute Nucleated RBC 0.00 (0.00-0.01) x10^3u/L Lymphocytes % 23.9 L (24.0-44.0) % Monocytes % 11.7 (0.0-12.0) % Eosinophils % 0.2 (0.00-5.0) % Basophils % 0.3 (0.0-0.4) % Absolute Granulocytes 3.63 (1.4-6.9) x10^3/uL Basophils # 0.02 (0-0.4) x10^3/uL Sodium 133 L (137-145) mmol/L Potassium 3.9 (3.5-5.1) mmol/L Chloride 100 (98-107) mmol/L Carbon Dioxide 25 (22-30) mmol/L Anion Gap 11.8 (5-15) MEQ/L BUN 13 (7-17) mg/dL Creatinine 0.59 (0.52-1.04) mg/dL Estimated GFR 106.4 ML/MIN Glucose 191 H (74-106) mg/dL Calcium 8.9 (8.4-10.2) mg/dL Total Bilirubin 0.50 (0.2-1.3) mg/dL AST 29 (14-36) U/L ALT 22 (0-35) U/L Alkaline Phosphatase 73 (38-126) U/L Troponin I 0.026 (0.000-0.034) ng/mL NT-Pro-B Natriuret Pep 244 (<300) pg/mL Serum Total Protein 7.5 (6.3-8.2) g/dL Albumin 4.2 (3.5-5.0) g/dL Urine Color (Yellow) Urine Appearance (Clear) Urine pH (4.6-8.0) Ur Specific [place] (1.005-1.030) Urine Protein (Negative) Urine Glucose (UA) (Negative) mg/dL Urine Ketones (Negative) Urine Blood (Negative) Urine Nitrite (Negative) Urine Bilirubin (Negative) Urine Urobilinogen (0.2) mg/dL Ur Leukocyte Esterase (Negative) U Hyaline Cast (Auto) (0-2) /LPF Urine Microscopic RBC (0-5) /HPF Urine Microscopic WBC (0-5) /HPF Ur Epithelial Cells (None Seen) /HPF Urine Bacteria (None Seen) /HPF Urine Culture Reflexed (NO) Monoscreen (NEGATIVE) Influenza Type A Ag (NEGATIVE) Influenza Type B Ag (NEGATIVE) RSV (PCR) (NEGATIVE) SARS-CoV-2 (PCR) (NEGATIVE) - Progress Progress: improved, re-examined Air Movement: fair Progress Note: 12/07/23 10:18 This patient's medical issue is 1 of moderate complexity. The level of complexity in the workup performed is based on review of the patient's past medical history, review of the patient's drug allergy list, review of the patient's medication list, history present illness and physical findings on examination. The workup in this patient includes placement of intravenous line, infusion of Solu-Medrol intravenously, respiratory therapy evaluation management with nebulizer treatment of DuoNeb, CBC, CMP, BNP, troponin level, twelve-lead EKG, chest x-ray, viral swabs, monotest. 12/07/23 11:32 Laboratory data was interpreted by me. The urinalysis is pending. The patient tested positive for influenza A. The patient's symptoms have been present for at least [address] not [address] this patient on Tamiflu. The remainder of the laboratory data workup does not show any acute, emergent medical issue. Chest x-ray was interpreted by the radiologist. I reviewed the impression. There is new subtle bilateral mid to lower lung patchy infiltrate alveolar opacities. Probable pneumonia 12/07/23 11:35 12/07/23 11:35 Blood Culture(s) Obtained: Yes Counseled pt/family regarding: lab results, diagnosis, need for follow-up, rad results Medical Desision Making - Diagnostic Testing Diagnostic test were ordered, analyzed, and reviewed by me: Yes Radiological Interpretation: Reviewed by me - Risk of complications The pt has a mod risk of morbidity or mortality based on: Need for prescription drug management - Departure Departure Disposition: Home Clinical Impression: Pneumonia, Influenza A H1N1 infection Condition: Stable Critical Care Time: No Referrals: ELISSA AGARWAL NP [Primary Care Provider] - Follow up/PCP as directed Additional Instructions: Stop smoking. You must use your nebulizer treatments every 4 hours while awake for the next 72 hours. Take your antibiotics and your cough medicine and steroids as prescribed. Wear your oxygen via nasal cannula every day for the next 72 hours. Call your primary care provider today, 12/07/2023, to make arranges for follow-up appointment for further evaluation and management. Prescriptions: Prednisone 10 mg [Deltasone 10 mg] 10 mg PO TID #12 tablet Hydrocodone/Acetaminophen [Hydrocodone-Acetamn 7.5-325/15] 10 ml PO Q8H PRN #120 ml MDD 30 ml PRN Reason: Cough Azithromycin 250 mg [Zithromax 250 MG TABLET] 250 mg PO ZPACK #6 tablet
[2023-12-07 09:50] VITALS: TEMP 97
[2023-12-07] MEDS ORDERED: solu-MEDROL 125 MG, Sterile H2O 10 ml 2 ML IV ONE ×2 (10:01)
[2023-12-07] MEDS ORDERED: Sterile H2O 10 ml IJ ONE (10:05)
[2023-12-07] MEDS ORDERED: solu-MEDROL ONE (10:05)
[2023-12-07] MEDS ORDERED: DUONEB 0.5-3 MG/3 ml Neb IH ONE ×2 (10:13→10:24)
[2023-12-07 10:53] LABS: ALBUMIN 4.2 g/dL (3.5-5.0); ANION GAP 11.8 MEQ/L (5-15); BILIRUBIN,TOTAL 0.5 mg/dL (0.2-1.3); Calcium 8.9 mg/dL (8.4-10.2); Creatinine 1 0.59 mg/dL (0.52-1.04); EST GLOMERULAR FILTRATION RATE 106.4 ML/MIN; Potassium 3.9 mmol/L (3.5-5.1); Total Protein 7.5 g/dL (6.3-8.2)
[2023-12-07 11:09] LABS: TROPONIN 0.026 ng/mL (0.000-0.034)
--- NOTE | 2023-12-07 11:12 | XRAY ---
Indication: Cough and congestion. Comparison: January 31, 2021 Portable chest demonstrates new subtle bilateral mid to lower lung patchy interstitial alveolar opacities, probable pneumonia in right clinical setting. Remaining heart and lungs unremarkable. Bony thorax intact again with degenerative changes.
[2023-12-07 11:15] LABS: Absolute Neutrophil Ct (ANC) 3.63 x10^3/uL (1.4-6.9); BASOPHIL % 0.3 % (0.0-0.4); Basophil (Absolute #) 0.02 x10^3/uL (0-0.4); Eosinophil % 0.2 % (0.00-5.0); Eosinophil (Absolute #) 0.01 x10^3/uL (0-0.5); Hemoglobin 16.9 g/dL (12.0-16.0); IMMATURE GRAN # 0.03 x10^3u/L (0.00-0.03); IMMATURE GRAN % 0.5 % (0.00-0.4); Lymphocyte (Absolute #) 1.37 x10^3/uL (1.0-4.6); Lymphocytes % 23.9 % (24.0-44.0); Mean Corpuscular Hemoglobin 28.7 pg (26-32); Mean Corpuscular Hgb Concent. 31.9 g/dL (32-36); Monocyte (Absolute #) 0.67 x10^3/uL (0.0-1.3); Monocytes % 11.7 % (0.0-12.0); Neutrophil % 63.4 % (36.0-66.0); Platelet Count 176 x10^3/uL (150-450); Red Blood Count 5.89 x10^6/uL (4.1-5.4); Red Cell Distribution Width 13.2 % (11.5-14.0); White Blood Count 5.7 x10^3/uL (4.0-10.5)
[2023-12-07 11:19] LABS: INFLUENZA B NEGATIVE (NEGATIVE); RESPIRATORY SYNCTIAL VIRUS NEGATIVE (NEGATIVE); SARS-CoV-2 Xpert Express NEGATIVE (NEGATIVE)
[2023-12-07] MEDS ORDERED: ROCEPHIN 1 Gm-D5w 50 ml Bag** 1 G/50 ML IVPB IV STA (11:30)
[2023-12-07 11:34] LABS: INFLUENZA A POSITIVE (NEGATIVE)
[2023-12-07] MEDS ORDERED: ROCEPHIN 1 Gm-D5w 50 ml Bag** 1 G/50 ML IVPB IV ONE (11:36)
[2023-12-07 12:01] LABS: Appearance Clear (Clear); Bacteria Rare /HPF (None Seen); Bilirubin Small (Negative); Blood Negative (Negative); Epithelial Cells Few /HPF (None Seen); Glucose, Urine Negative (Negative); Ketones Negative (Negative); Leukocyte Esterase Negative (Negative); Nitrite Negative (Negative); Ph 5.5 (4.6-8.0); Protein,Urine Dip 100 (Negative); RBC 0-2 /HPF (0-5)
[2023-12-07 12:02] LABS: ADD URINE CULTURE? NO (NO)
[2023-12-07 13:37] VITALS: BP 132/70; PULSE 78; RESP 18; O2SAT 94
== END 2023-12-07 13:00 | disposition home or self-care (01) ==
LOC: ED 09:41
DX: J10.00 Influenza due to other identified influenza virus with unspecified type of pneumonia (principal); R06.02 Shortness of breath; R05.1 Acute cough; R51.9 Headache, unspecified; I10 Essential (primary) hypertension; E11.9 Type 2 diabetes mellitus without complications; Z79.891 Long term (current) use of opiate analgesic; Z79.52 Long term (current) use of systemic steroids; Z79.84 Long term (current) use of oral hypoglycemic drugs; Z79.899 Other long term (current) drug therapy; Z72.0 Tobacco use; Z99.81 Dependence on supplemental oxygen
CPT/HCPCS: 0241U; 36000; 36415; 71045; 80053; 81001; 83880; 84484; 85025; 86308; 87040; 93005; 93041; 94640; 94760; 96365; 96374; 99284; J0696; J2930; A9270-GY

== ENCOUNTER 2025-01-10 06:30 | Day surgery (SDC) | payer MEDICARE ==
[2025-01-10] MEDS: Lactated Ringers 1,000 ML IV SCH (06:52)
[2025-01-10] MEDS: CEFAZOLIN 2 GM/100 ML NaCl 2 GM/100 ML IVPB IV SCH (06:52)
[2025-01-10 07:02] LABS: Hematocrit 49.1 % (34.1-44.9); Mean Cell Volume 87.8 fL (79.4-94.8); Mean Corpuscular Hemoglobin 28.6 pg (25.6-32.2); Mean Corpuscular Hgb Concent. 32.6 g/dL (32.2-35.5); Mean Platelet Volume 9.4 fL (9.4-12.3); Platelet Count 238 x10^3/uL (182-369); Red Blood Count 5.59 x10^6/uL (3.93-5.22); Red Cell Distribution Width 13.7 % (11.7-14.4)
[2025-01-10] MEDS: NEURONTIN PO ONE (07:15)
[2025-01-10] MEDS: Decadron 4 MG PO ONE (07:15)
[2025-01-10] MEDS: TYLENOL EXTRA STRENGTH 500 MG PO ONE (07:16)
[2025-01-10] MEDS: celeBREX 100 MG PO ONE (07:16)
[2025-01-10 07:41] LABS: ALBUMIN 4.4 g/dL (3.5-5.0); BILIRUBIN,TOTAL 0.7 mg/dL (0.2-1.3); Calcium 9.4 mg/dL (8.4-10.2); Creatinine 1 0.55 mg/dL (0.52-1.04); EST GLOMERULAR FILTRATION RATE 107.5 ML/MIN; Potassium 3.5 mmol/L (3.5-5.1); Total Protein 7.1 g/dL (6.3-8.2)
[2025-01-10] MEDS ORDERED: Xylocaine-Mpf 2% 5 Ml Vial ONE (09:05)
[2025-01-10] MEDS ORDERED: TORAdol 30 mg Injection ONE (09:05)
[2025-01-10] MEDS ORDERED: Zofran 4 MG/2 ML VIAL ONE (09:05)
[2025-01-10] MEDS ORDERED: ROCURONIUM BROMIDE IV ONE (09:05)
[2025-01-10] MEDS ORDERED: propofoL IV ONE (09:05)
[2025-01-10] MEDS ORDERED: dexAMETHasone sodium phosphate ONE (09:05)
[2025-01-10] MEDS ORDERED: BRIDION 200MG/2ML IV ONE (09:05)
[2025-01-10] MEDS ORDERED: SUBLIMAZE 100 MCG/2 ML ONE (09:05)
[2025-01-10] MEDS ORDERED: Versed 2 MG/2 ML Injection ONE (09:09)
[2025-01-10] MEDS ORDERED: Xylocaine 1% Vial 30 ML PF IJ ONE (09:17)
[2025-01-10] MEDS ORDERED: Marcaine Mpf 0.5% Vial 30 Ml ONE (09:17)
--- NOTE | 2025-01-10 10:27 | XRAY ---
Indication: Excision right mid foot exostosis. Intraoperative fluoroscopy provided for 4 seconds. 3 digital spot images submitted for interpretation demonstrates metallic localizer anterior lateral to distal talus. Correlate with intraoperative findings/report.
[2025-01-10 11:12] VITALS: PULSE 90; TEMP 97.8; O2SAT 92
[2025-01-10 11:26] VITALS: BP 140/82; RESP 18
--- NOTE | 2025-01-10 13:18 | XRAY ---
4 seconds of fluoroscopy was used in surgery for an excision right mid foot exostosis.
--- NOTE | 2025-01-11 17:39 | OP ---
SURGERY DATE/TIME: 01/10/2025 [id number] PREOPERATIVE DIAGNOSES: 1) Congenital deformity, right foot. 2) Os intermetatarseum, right foot. 3) Exostosis, right foot. 4) Pain, right foot. POSTOPERATIVE DIAGNOSES: 1) Congenital deformity, right foot. 2) Os intermetatarseum, right foot. 3) Exostosis, right foot. 4) Pain, right foot. PROCEDURE: Exostectomy of dorsal aspect of midfoot, right. SURGEON: Anival Freeman DPM ALUMINUM WELDER: Bouchra Conde, Surgical Box Printing Machine Operator, and Gurwinder Arias NP-C. ANESTHESIA: General. HEMOSTASIS: Ankle tourniquet set to 250 mmHg for a total of 15 total tourniquet minutes. ESTIMATED BLOOD LOSS: Minimal. INJECTABLES: 10 mL of a 1:1 mixture of 1% lidocaine plain and 0.5% bupivacaine plain injected in a digital block-type fashion proximal to the resection site. INDICATIONS FOR PROCEDURE: Patient is a very pleasant 54-year-old female, very well-known to my service for the same issue to the contralateral extremity. At this time, the patient presents with similar symptoms with pain with dorsal compression and shoe gear to the right midfoot. Patient was diagnosed with an os intermetatarseum on the last visit. X-rays were taken demonstrating a similar presentation with no joint involvement. From that standpoint, patient has progressed without complication with the previous procedure, and she wishes to proceed with excision to the contralateral foot. Patient has been made aware of all risks, complications, and benefits of surgical intervention at this time including, but not limited to, infection, hematoma, seroma, possibility of delayed wound healing, non-wound healing, and possible need for further surgical intervention at a later date. No guarantees were provided as to the outcome of surgical intervention. It is at this time we decided to proceed. DESCRIPTION OF PROCEDURE AND FINDINGS: Patient was brought into the operating room and placed on the operating room table in the supine position. General anesthesia was administered until the patient was adequately sedated. A well-padded ankle tourniquet was applied to the patient's right lower extremity ankle, and the tourniquet was set to 250 mmHg. At this time, the right lower extremity was prepped and draped in the typical sterile fashion and lowered onto the surgical field. Attention was directed to the dorsal aspect of the midfoot in between the 1st and 2nd metatarsals and leading into the intercuneiforms. An incision was made skin deep which was carefully dissected making sure not to damage any neurovascular structures along this path. The dorsalis pedis and the deep peroneal nerve were encountered and retracted laterally. From that standpoint, the extensor tendons were identified and retracted laterally once again. Once the exposure of the exostosis was gained, a 0.25-inch osteotome was utilized to resect the base of this and was removed easily. Hand rasp was utilized making sure not to damage any neurovascular structures along the way to smooth down to plane, and bone wax was used to cover the site where the exposed bone was to prevent recurrence. From that standpoint, copious amounts of irrigation was utilized to flush the surgical site. Then, 4-0 Monocryl was then utilized to coapt the subcutaneous skin edges in a simple buried interrupted type fashion, and then 3-0 nylon was utilized to coapt the skin edges in an everted type fashion with horizontal mattress. A dressing consisting of Betadine, Adaptic, 4 x 4, Kerlix, ABD, and Anatoly was applied to the patient's right lower extremity. Patient was then reversed from anesthesia and returned to the postoperative anesthesia care unit with vital signs stable and vascular status intact. Patient handled the anesthesia as well as the procedure without significant complication. Postoperative orders as indicated in the patient's discharge chart.
== END 2025-01-10 11:27 | disposition home or self-care (01) ==
LOC: SDC 06:30
PROVIDERS: ATTEND Podiatrist Foot & Ankle Surgery
DX: Q66.91 Congenital deformity of feet, unspecified, right foot (principal); M89.371 Hypertrophy of bone, right ankle and foot; M25.774 Osteophyte, right foot; M79.671 Pain in right foot
CPT/HCPCS: 28122; 36415; 73630; 76000; 80053; 85027; 93005; J0690; J1100; J1885; J2250; J2405; J2704; J3010; A9270-GY